=== PATIENT | male | born 1980 | race American Indian/Alaskan Native ===

== ENCOUNTER 2023-12-20 04:39 | Inpatient (IN) | payer SELFPAY ==
[2023-12-20] MEDS: Ondansetron 4 MG/2 ML SDV IVPUSH ONE (04:47)
[2023-12-20 04:59] LABS: BASOPHILS ABSOLUTE AUTO 0.08 K/uL (0.00-0.20); BASOPHILS PERCENT AUTO 0.6 % (0.0-1.0); EOSINOPHILS ABSOLUTE AUTO 0.01 K/uL (0.00-0.45); EOSINOPHILS PERCENT AUTO 0.1 % (0.0-6.0); HEMATOCRIT 42.1 % (42.0-52.0); IMMATURE GRAN ABSOLUTE AUTO 0.21 K/uL (0.00-0.05); IMMATURE GRAN PERCENT AUTO 1.4 % (0.0-0.4); LYMPHOCYTES ABSOLUTE AUTO 1.61 K/uL (1.00-4.80); LYMPHOCYTES PERCENT AUTO 11.1 % (24.0-44.0); MEAN CORPUSCULAR HEMOGLOBIN 27.8 pg (28.0-32.0); MEAN CORPUSCULAR HGB CONC 30.9 g/dL (32.0-36.0); MEAN CORPUSCULAR VOLUME 90.1 fL (83.0-99.0); MEAN PLATELET VOLUME 9.8 fL (9.4-12.4); MONOCYTES ABSOLUTE AUTO 0.94 K/uL (0.00-0.80); MONOCYTES PERCENT AUTO 6.5 % (0.0-8.0); NEUTROPHILS ABSOLUTE AUTO 11.66 K/uL (1.80-7.70); NEUTROPHILS PERCENT AUTO 80.3 % (41.0-71.0); PCO2 VENOUS 18 mmHG (41-51); PH,VENOUS < 6.82 (7.31-7.41); PLATELET COUNT,PLT 167 K/uL (150-400); PO2 VENOUS 60 mmHG; RED BLOOD CELL COUNT 4.67 M/uL (4.52-5.90); WHITE BLOOD CELL COUNT,WBC 14.51 K/uL (3.9-11.3)
[2023-12-20] MEDS ORDERED: Potassium Chloride 20 MEQ in Premix Bag 1 BAG IV ONE (05:13)
[2023-12-20] MEDS ORDERED: 50% Dextrose in Water 50 ML Syringe IVPUSH PRN (05:15)
[2023-12-20] MEDS ORDERED: Glucagon,Human Recombinant 1 MG Vial IM PRN (05:15)
[2023-12-20] MEDS: Sodium Bicarbonate 8.4% 50 MEQ/50 ML Syringe IVPUSH ONE ×2 (05:20→06:15)
[2023-12-20] MEDS ORDERED: [UNRECOGNIZED DRUG - OTHER] IV ONE (05:30)
[2023-12-20] MEDS ORDERED: POTASSIUM CHLORIDE IV ONE (05:30)
[2023-12-20] MEDS: Potassium Chloride 10 MEQ in Premix Bag 1 BAG IV ONE ×3 (05:32→06:12)
[2023-12-20 05:52] LABS: A/G RATIO 0.8 (0.9-1.6); ALANINE AMINOTRANSFERASE,ALT 132 IU/L (14-63); ALBUMIN 3.8 g/dL (3.4-5.0); ALKALINE PHOSPHATASE 187 U/L (46-116); BILIRUBIN TOTAL 0.5 mg/dL (0.2-1.0); BLOOD UREA NITROGEN,BUN 16 mg/dL (7.0-18.0); CALCIUM 8.6 mg/dL (8.5-10.1); CHLORIDE,CL 93 mmol/L (98-107); CREATININE 1.3 mg/dL (0.8-1.3); POTASSIUM,K 5.7 mmol/L (3.5-5.1); PROTEIN TOTAL,TP 8.5 g/dL (6.4-8.2); SODIUM,NA 129 mmol/L (136-148)
[2023-12-20 05:54] LABS: CARBON DIOXIDE,CO2 1.9 mmol/L (21.0-32.0)
[2023-12-20 05:55] LABS: ESTIMATED GFR 70 mL/min (>60); GLUCOSE RANDOM 663 mg/dL (74-106)
[2023-12-20] MEDS: Insulin Regular, Human 100 Units/ML 10 ML Vial IVPUSH ONE (06:01)
[2023-12-20] MEDS: Insulin Regular in 0.9 % NACL 100 ML IV SCH (06:03)
[2023-12-20 06:09] LABS: ASPARTATE AMNIOTRANSFERASE,AST 62 IU/L (15-37)
[2023-12-20] MEDS: Prochlorperazine 10 MG/2 ML SDV IM ONE (06:13)
[2023-12-20] MEDS: Prochlorperazine 10 MG/2 ML SDV IVPUSH ONE (06:16)
[2023-12-20] MEDS: Sodium Chloride 0.9% 1,000 ML IV STA (06:28)
[2023-12-20 06:52] LABS: POTASSIUM,K 5.3 mmol/L (3.5-5.1)
[2023-12-20] MEDS ORDERED: Sodium Bicarbonate 150 MEQ in Sodium Chloride 0.45% 1,000 ML IV SCH ×2 (07:00→08:30)
[2023-12-20 07:16] LABS: APPEARANCE,URINE CLEAR; BILIRUBIN,URINE NEGATIVE (NEGATIVE); COLOR,URINE YELLOW; GLUCOSE,URINE 500 mg/dL (NEGATIVE); KETONES,URINE >=80 mg/dL (NEGATIVE); LEUKOCYTE ESTERASE,URINE NEGATIVE (NEGATIVE); NITRITE,URINE NEGATIVE (NEGATIVE); OCCULT BLOOD,URINE SMALL (NEGATIVE); PROTEIN,URINE 30 mg/dL (NEGATIVE); UROBILINOGEN,URINE 0.2 EU/dL (<2.0)
[2023-12-20] MEDS: Iopamidol 755 MG/ML 500 ML Multipack Bottle IVPUSH ONE (07:16)
[2023-12-20 07:28] LABS: BACTERIA,URINE RARE (NEGATIVE); EPITHELIAL CELLS,URINE NOT SEEN (NONE-FEW); RBC,URINE 0-1 (0-2/HPF); WBC,URINE 0-1 (0-5/HPF)
[2023-12-20 07:48] LABS: BLOOD UREA NITROGEN,BUN 16 mg/dL (7.0-18.0); CALCIUM 7.7 mg/dL (8.5-10.1); CHLORIDE,CL 97 mmol/L (98-107); CREATININE 1.1 mg/dL (0.8-1.3); GLUCOSE RANDOM 495 mg/dL (74-106); PHOSPHORUS 5.1 mg/dL (2.6-4.7); POTASSIUM,K 4.7 mmol/L (3.5-5.1); SODIUM,NA 131 mmol/L (136-148)
[2023-12-20 07:50] LABS: ESTIMATED GFR 85 mL/min (>60)
[2023-12-20] MEDS: Sodium Chloride 0.9% 1,000 ML IV ONE ×2 (08:10)
[2023-12-20 08:11] LABS: PH,VENOUS 6.9 (7.31-7.41)
[2023-12-20 08:12] LABS: CARBON DIOXIDE,CO2 3.1 mmol/L (21.0-32.0)
[2023-12-20 08:30] LABS: POTASSIUM,K 4.7 mmol/L (3.5-5.1)
[2023-12-20 09:29] LABS: POTASSIUM,K 4.6 mmol/L (3.5-5.1)
[2023-12-20 10:29] LABS: BASE EXCESS VENOUS -25.7 (-2.0-3.0); PH,VENOUS 6.99 (7.31-7.41)
[2023-12-20 10:33] LABS: BLOOD UREA NITROGEN,BUN 14 mg/dL (7.0-18.0); CALCIUM 7.2 mg/dL (8.5-10.1); CHLORIDE,CL 102 mmol/L (98-107); GLUCOSE RANDOM 212 mg/dL (74-106); SODIUM,NA 135 mmol/L (136-148)
[2023-12-20 10:35] LABS: ESTIMATED GFR 96 mL/min (>60)
[2023-12-20] MEDS ORDERED: DEXTROSE IV SCH (11:30)
[2023-12-20] MEDS ORDERED: SODIUM BICARBONATE IV SCH (11:30)
[2023-12-20] MEDS ORDERED: NACL IV SCH (11:30)
[2023-12-20] MEDS ORDERED: Polyethylene Glycol 3350 Powder 17 GM Packet PO PRN (11:33)
[2023-12-20] MEDS ORDERED: Acetaminophen 325 MG Tab PO PRN (11:33)
[2023-12-20] MEDS ORDERED: Acetaminophen 650 MG Supp RECTAL PRN (11:33)
[2023-12-20] MEDS ORDERED: Albuterol/Ipratropium 3.0-0.5 MG/3 ML Neb Soln NEB PRN (11:33)
[2023-12-20] MEDS ORDERED: Thiamine 100 MG in Sodium Chloride 0.9% 100 ML IV SCH (11:45)
[2023-12-20] MEDS ORDERED: LORazepam 1 MG Tab PO PRN (11:45)
[2023-12-20] MEDS: Folic Acid 1 MG/0.2 ML UD Syringe IV SCH (12:06)
[2023-12-20] MEDS: Pantoprazole 40 MG in Sodium Chloride 0.9% 10 ML IVPUSH SCH (12:06)
[2023-12-20] MEDS: Thiamine 200 MG/2 ML MDV IVPUSH SCH (12:06)
[2023-12-20] MEDS ORDERED: Prochlorperazine 10 MG/2 ML SDV IVPUSH PRN (12:08)
[2023-12-20] MEDS: DEXTROSE IV SCH ×2 (12:17→18:28)
[2023-12-20] MEDS: SODIUM BICARBONATE IV SCH ×2 (12:17→18:28)
[2023-12-20] MEDS: NACL IV SCH ×2 (12:17→18:28)
[2023-12-20 12:44] LABS: CALCIUM 7.6 mg/dL (8.5-10.1); EST CRCL DRUG DOSING (CG) 78.46 mL/min; PHOSPHORUS 2.8 mg/dL (2.6-4.7); POTASSIUM,K 4.9 mmol/L (3.5-5.1)
[2023-12-20] MEDS: Ondansetron 4 MG/2 ML SDV IVPUSH PRN (13:15)
[2023-12-20 14:52] LABS: CALCIUM 7.8 mg/dL (8.5-10.1); CARBON DIOXIDE,CO2 4.2 mmol/L (21.0-32.0); CREATININE 1.1 mg/dL (0.8-1.3); EST CRCL DRUG DOSING (CG) 71.33 mL/min; MAGNESIUM 2.1 mg/dL (1.8-2.4); POTASSIUM,K 5.3 mmol/L (3.5-5.1)
[2023-12-20] MEDS: LORazepam 2 MG/ML SDV IVPUSH ONE (16:05)
[2023-12-20 16:07] LABS: LACTIC ACID 0.7 mmol/L (0.4-2.0)
[2023-12-20 16:53] LABS: CALCIUM 7.8 mg/dL (8.5-10.1); EST CRCL DRUG DOSING (CG) 78.46 mL/min; MAGNESIUM 2.1 mg/dL (1.8-2.4); POTASSIUM,K 5.7 mmol/L (3.5-5.1)
[2023-12-20 16:54] LABS: CARBON DIOXIDE,CO2 4.1 mmol/L (21.0-32.0)
[2023-12-20 17:15] LABS: A/G RATIO 0.9 (0.9-1.6); ALBUMIN 3.3 g/dL (3.4-5.0); BILIRUBIN DIRECT 0.1 mg/dL (0.0-0.5); BILIRUBIN INDIRECT 0.5; BILIRUBIN TOTAL 0.6 mg/dL (0.2-1.0); PROTEIN TOTAL,TP 6.8 g/dL (6.4-8.2)
[2023-12-20 18:31] LABS: CARBON DIOXIDE,CO2 5.5 mmol/L (21.0-32.0); CREATININE 1.1 mg/dL (0.8-1.3); EST CRCL DRUG DOSING (CG) 71.33 mL/min; MAGNESIUM 2.1 mg/dL (1.8-2.4); POTASSIUM,K 5.6 mmol/L (3.5-5.1)
[2023-12-20 20:27] LABS: CALCIUM 8.1 mg/dL (8.5-10.1); CARBON DIOXIDE,CO2 5.7 mmol/L (21.0-32.0); CREATININE 1.1 mg/dL (0.8-1.3); EST CRCL DRUG DOSING (CG) 71.33 mL/min; MAGNESIUM 1.9 mg/dL (1.8-2.4); POTASSIUM,K 4.4 mmol/L (3.5-5.1)
[2023-12-20] MEDS ORDERED: Cefepime 2 GM in Sodium Chloride 0.9% 50 ML IV SCH (22:00)
[2023-12-20 22:22] LABS: CALCIUM 8.1 mg/dL (8.5-10.1); EST CRCL DRUG DOSING (CG) 78.46 mL/min; MAGNESIUM 1.7 mg/dL (1.8-2.4); POTASSIUM,K 3.8 mmol/L (3.5-5.1)
[2023-12-20] MEDS: Cefepime 2 GM in Sodium Chloride 0.9% 50 ML IV SCH (22:49)
[2023-12-21] MEDS: Potassium Chloride 10 MEQ in Premix Bag 1 BAG IV SCH ×2 (01:19→13:20)
[2023-12-21 02:27] LABS: CARBON DIOXIDE,CO2 16.8 mmol/L (21.0-32.0); CREATININE 0.8 mg/dL (0.8-1.3); EST CRCL DRUG DOSING (CG) 98.08 mL/min; MAGNESIUM 1.7 mg/dL (1.8-2.4); POTASSIUM,K 3.7 mmol/L (3.5-5.1)
[2023-12-21] MEDS: Magnesium Sulfate/Water 2 GM in Premix Bag 1 BAG IV ONE (03:13)
[2023-12-21 06:47] LABS: EOSINOPHILS ABSOLUTE AUTO 0.01 K/uL (0.00-0.45); EOSINOPHILS PERCENT AUTO 0.2 % (0.0-6.0); HEMATOCRIT 28.7 % (42.0-52.0); HEMOGLOBIN 9.9 g/dL (14.0-18.0); IMMATURE GRAN ABSOLUTE AUTO 0.02 K/uL (0.00-0.05); IMMATURE GRAN PERCENT AUTO 0.4 % (0.0-0.4); LYMPHOCYTES ABSOLUTE AUTO 0.82 K/uL (1.00-4.80); LYMPHOCYTES PERCENT AUTO 14.5 % (24.0-44.0); MEAN CORPUSCULAR HGB CONC 34.5 g/dL (32.0-36.0); MEAN CORPUSCULAR VOLUME 81.1 fL (83.0-99.0); MEAN PLATELET VOLUME 9.8 fL (9.4-12.4); MONOCYTES ABSOLUTE AUTO 0.47 K/uL (0.00-0.80); MONOCYTES PERCENT AUTO 8.3 % (0.0-8.0); NEUTROPHILS ABSOLUTE AUTO 4.35 K/uL (1.80-7.70); NEUTROPHILS PERCENT AUTO 76.6 % (41.0-71.0); RED BLOOD CELL COUNT 3.54 M/uL (4.52-5.90); WHITE BLOOD CELL COUNT,WBC 5.67 K/uL (3.9-11.3)
[2023-12-21 06:53] LABS: CALCIUM 8.2 mg/dL (8.5-10.1); CREATININE 0.8 mg/dL (0.8-1.3); EST CRCL DRUG DOSING (CG) 99.38 mL/min; MAGNESIUM 2.5 mg/dL (1.8-2.4); POTASSIUM,K 3.5 mmol/L (3.5-5.1)
[2023-12-21 07:09] LABS: PLATELET COUNT,PLT 102 K/uL (150-400)
[2023-12-21] MEDS: Dextrose 5%-0.45% NaCl 1,000 ML IV SCH (07:35)
[2023-12-21] MEDS: Potassium Chloride 20 MEQ Tab.ER PO ONE ×2 (07:36→19:08)
[2023-12-21 10:19] LABS: CALCIUM 8.1 mg/dL (8.5-10.1); CARBON DIOXIDE,CO2 25.8 mmol/L (21.0-32.0); CREATININE 0.8 mg/dL (0.8-1.3); EST CRCL DRUG DOSING (CG) 99.38 mL/min; POTASSIUM,K 3.1 mmol/L (3.5-5.1)
[2023-12-21] MEDS ORDERED: Glucagon,Human Recombinant 1 MG Vial IM PRN (10:21)
[2023-12-21] MEDS ORDERED: 50% Dextrose in Water 50 ML Syringe IVPUSH PRN (10:21)
[2023-12-21] MEDS: Insulin Glargine,Hum.Rec.Anlog 100 UNIT/ML 3 ML Pen SUBCUT STA (10:28)
[2023-12-21] MEDS: Insulin Aspart 100 Units/ML 3 ML Pen SUBCUT SCH (11:20)
[2023-12-21] MEDS ORDERED: Potassium Chloride 20 MEQ in Premix Bag 1 BAG IV ONE (12:30)
[2023-12-21 14:25] LABS: CALCIUM 8.2 mg/dL (8.5-10.1); CARBON DIOXIDE,CO2 25.5 mmol/L (21.0-32.0); CREATININE 0.8 mg/dL (0.8-1.3); EST CRCL DRUG DOSING (CG) 99.38 mL/min; POTASSIUM,K 3.4 mmol/L (3.5-5.1)
[2023-12-21 18:37] LABS: CALCIUM 8.8 mg/dL (8.5-10.1); CARBON DIOXIDE,CO2 20.3 mmol/L (21.0-32.0); EST CRCL DRUG DOSING (CG) 79.5 mL/min; POTASSIUM,K 3.6 mmol/L (3.5-5.1)
[2023-12-21] MEDS: Insulin Glargine,Hum.Rec.Anlog 100 UNIT/ML 3 ML Pen SUBCUT SCH (22:33)
[2023-12-22 06:02] LABS: BASOPHILS ABSOLUTE AUTO 0.02 K/uL (0.00-0.20); BASOPHILS PERCENT AUTO 0.5 % (0.0-1.0); EOSINOPHILS ABSOLUTE AUTO 0.05 K/uL (0.00-0.45); EOSINOPHILS PERCENT AUTO 1.3 % (0.0-6.0); HEMATOCRIT 31.8 % (42.0-52.0); HEMOGLOBIN 10.6 g/dL (14.0-18.0); IMMATURE GRAN ABSOLUTE AUTO 0.01 K/uL (0.00-0.05); IMMATURE GRAN PERCENT AUTO 0.3 % (0.0-0.4); LYMPHOCYTES ABSOLUTE AUTO 1.25 K/uL (1.00-4.80); LYMPHOCYTES PERCENT AUTO 32.1 % (24.0-44.0); MEAN CORPUSCULAR HEMOGLOBIN 27.2 pg (28.0-32.0); MEAN CORPUSCULAR HGB CONC 33.3 g/dL (32.0-36.0); MEAN CORPUSCULAR VOLUME 81.7 fL (83.0-99.0); MEAN PLATELET VOLUME 9.6 fL (9.4-12.4); MONOCYTES ABSOLUTE AUTO 0.43 K/uL (0.00-0.80); MONOCYTES PERCENT AUTO 11.1 % (0.0-8.0); NEUTROPHILS ABSOLUTE AUTO 2.13 K/uL (1.80-7.70); NEUTROPHILS PERCENT AUTO 54.7 % (41.0-71.0); PLATELET COUNT,PLT 78 K/uL (150-400); RED BLOOD CELL COUNT 3.89 M/uL (4.52-5.90); WHITE BLOOD CELL COUNT,WBC 3.89 K/uL (3.9-11.3)
[2023-12-22 06:42] LABS: A/G RATIO 0.8 (0.9-1.6); ALBUMIN 2.8 g/dL (3.4-5.0); BILIRUBIN TOTAL 0.5 mg/dL (0.2-1.0); CALCIUM 8.6 mg/dL (8.5-10.1); CARBON DIOXIDE,CO2 22.8 mmol/L (21.0-32.0); CREATININE 0.6 mg/dL (0.8-1.3); EST CRCL DRUG DOSING (CG) 127.41 mL/min; PROTEIN TOTAL,TP 6.3 g/dL (6.4-8.2)
[2023-12-22 06:57] LABS: POTASSIUM,K 3.7 mmol/L (3.5-5.1)
[2023-12-22] MEDS: Insulin Glargine,Hum.Rec.Anlog 100 UNIT/ML 3 ML Pen SUBCUT SCH (07:44)
== END 2023-12-22 14:10 | disposition home or self-care (01) | DRG 639 ==
LOC: MW.ED 04:39 → MW.ICU 09:59
PROVIDERS: ADMIT Family Medicine; ATTEND Family Medicine
DX: E11.10 Type 2 diabetes mellitus with ketoacidosis without coma (principal); D72.829 Elevated white blood cell count, unspecified; F10.10 Alcohol abuse, uncomplicated; E87.8 Other disorders of electrolyte and fluid balance, not elsewhere classified; R74.8 Abnormal levels of other serum enzymes; D50.9 Iron deficiency anemia, unspecified; Z79.4 Long term (current) use of insulin; Z88.1 Allergy status to other antibiotic agents; Z91.148 Patient's other noncompliance with medication regimen for other reason; Z79.899 Other long term (current) drug therapy
CPT/HCPCS: 36415; 71045; 71045-26; 74177; 74177-26; 80048; 80053; 80076; 81001; 82009; 82330; 82803; 82947; 83605; 83690; 83735; 84100; 84132; 84478; 84484; 85025; 87040; 93005; 93010; 99291; A9270-GY; C9113; J0692; J0780; J1815; J1815-GY; J2060; J2405; J3411; J3475; J3480; J3490; J7030; J7042; Q9967

== ENCOUNTER 2024-03-07 06:05 | Inpatient (IN) | payer SELFPAY ==
[2024-03-07 06:17] LABS: BASOPHILS ABSOLUTE AUTO 0.07 K/uL (0.00-0.20); BASOPHILS PERCENT AUTO 0.5 % (0.0-1.0); EOSINOPHILS ABSOLUTE AUTO 0.02 K/uL (0.00-0.45); EOSINOPHILS PERCENT AUTO 0.1 % (0.0-6.0); HEMATOCRIT 43.6 % (42.0-52.0); HEMOGLOBIN 13.3 g/dL (14.0-18.0); IMMATURE GRAN ABSOLUTE AUTO 0.17 K/uL (0.00-0.05); IMMATURE GRAN PERCENT AUTO 1.1 % (0.0-0.4); LYMPHOCYTES ABSOLUTE AUTO 2.22 K/uL (1.00-4.80); LYMPHOCYTES PERCENT AUTO 14.5 % (24.0-44.0); MEAN CORPUSCULAR HEMOGLOBIN 24.9 pg (28.0-32.0); MEAN CORPUSCULAR HGB CONC 30.5 g/dL (32.0-36.0); MEAN CORPUSCULAR VOLUME 81.5 fL (83.0-99.0); MEAN PLATELET VOLUME 10.6 fL (9.4-12.4); MONOCYTES ABSOLUTE AUTO 0.63 K/uL (0.00-0.80); MONOCYTES PERCENT AUTO 4.1 % (0.0-8.0); NEUTROPHILS ABSOLUTE AUTO 12.24 K/uL (1.80-7.70); NEUTROPHILS PERCENT AUTO 79.7 % (41.0-71.0); PLATELET COUNT,PLT 189 K/uL (150-400); RED BLOOD CELL COUNT 5.35 M/uL (4.52-5.90); WHITE BLOOD CELL COUNT,WBC 15.35 K/uL (3.9-11.3)
[2024-03-07] MEDS: Sodium Chloride 0.9% 10 ML Syringe FLUSH PRN (06:18)
[2024-03-07] MEDS: Sodium Chloride 0.9% 1,000 ML IV STA (06:18)
[2024-03-07] MEDS: Sodium Chloride 0.9% 2.5 ML Syringe FLUSH PRN (06:18)
[2024-03-07] MEDS: Ondansetron 4 MG/2 ML SDV IVPUSH ONE (06:22)
[2024-03-07 06:35] LABS: A/G RATIO 0.8 (0.9-1.6); ALBUMIN 4.2 g/dL (3.4-5.0); BILIRUBIN TOTAL 0.7 mg/dL (0.2-1.0); CALCIUM 9.5 mg/dL (8.5-10.1); CARBON DIOXIDE,CO2 7.6 mmol/L (21.0-32.0); CREATININE 1.5 mg/dL (0.8-1.3); EST CRCL DRUG DOSING (CG) 53.44 mL/min; POTASSIUM,K 4.8 mmol/L (3.5-5.1); PROTEIN TOTAL,TP 9.4 g/dL (6.4-8.2)
[2024-03-07 06:40] LABS: BASE EXCESS VENOUS -23.5 (-2.0-3.0); PH,VENOUS 7.01 (7.31-7.41)
[2024-03-07] MEDS: Iopamidol 755 MG/ML 500 ML Multipack Bottle IVPUSH STA (06:59)
[2024-03-07] MEDS: Sodium Chloride 0.9% 1,000 ML IV ONE (07:10)
[2024-03-07] MEDS: Metoclopramide 10 MG/2 ML SDV IVPUSH ONE (07:11)
[2024-03-07] MEDS: diphenhydrAMINE 50 MG/ML SDV IVPUSH ONE (07:11)
[2024-03-07] MEDS: Folic Acid 1 MG/0.2 ML UD Syringe IV STA (07:12)
[2024-03-07] MEDS: Thiamine 200 MG/2 ML MDV IVPUSH ONE (07:13)
[2024-03-07] MEDS: Pantoprazole 40 MG in Sodium Chloride 0.9% 10 ML IVPUSH ONE (07:15)
[2024-03-07] MEDS: LORazepam 2 MG/ML SDV IVPUSH ONE (07:17)
[2024-03-07] MEDS ORDERED: Insulin Regular in 0.9 % NACL 100 ML IV SCH (07:45)
[2024-03-07] MEDS: Insulin Regular in 0.9 % NACL 100 ML IV SCH ×2 (08:05→11:12)
[2024-03-07 08:29] LABS: POTASSIUM,K 5.2 mmol/L (3.5-5.1)
[2024-03-07] MEDS ORDERED: Polyethylene Glycol 3350 Powder 17 GM Packet PO PRN (08:37)
[2024-03-07] MEDS ORDERED: Acetaminophen 650 MG Supp RECTAL PRN (08:37)
[2024-03-07] MEDS ORDERED: Melatonin 3 MG Tab PO PRN (08:37)
[2024-03-07] MEDS ORDERED: Sodium Chloride 0.9% 1,000 ML IV SCH ×2 (08:45)
[2024-03-07] MEDS ORDERED: Gabapentin 100 MG Cap PO SCH (08:45)
[2024-03-07] MEDS ORDERED: LORazepam 2 MG/ML SDV IVPUSH PRN (08:53)
[2024-03-07] MEDS ORDERED: Thiamine 100 MG in Sodium Chloride 0.9% 100 ML IV SCH (09:00)
[2024-03-07 09:05] LABS: CALCIUM 7.8 mg/dL (8.5-10.1); CARBON DIOXIDE,CO2 6.4 mmol/L (21.0-32.0); CREATININE 1.3 mg/dL (0.8-1.3); EST CRCL DRUG DOSING (CG) 61.66 mL/min; MAGNESIUM 1.9 mg/dL (1.8-2.4); PHOSPHORUS 6.1 mg/dL (2.6-4.7); POTASSIUM,K 5.2 mmol/L (3.5-5.1)
[2024-03-07 09:26] LABS: APPEARANCE,URINE CLEAR; BILIRUBIN,URINE NEGATIVE (NEGATIVE); COLOR,URINE YELLOW; GLUCOSE,URINE 500 mg/dL (NEGATIVE); KETONES,URINE >=80 mg/dL (NEGATIVE); LEUKOCYTE ESTERASE,URINE NEGATIVE (NEGATIVE); NITRITE,URINE NEGATIVE (NEGATIVE); OCCULT BLOOD,URINE TRACE-INTACT (NEGATIVE); PROTEIN,URINE TRACE mg/dL (NEGATIVE); UROBILINOGEN,URINE 0.2 EU/dL (<2.0)
[2024-03-07 09:37] LABS: BACTERIA,URINE NOT SEEN (NEGATIVE); EPITHELIAL CELLS,URINE NOT SEEN (NONE-FEW); WBC,URINE NONE SEEN (0-5/HPF)
[2024-03-07] MEDS ORDERED: Dextrose 5%-0.45% NaCl 1,000 ML IV SCH (10:15)
[2024-03-07] MEDS: Dextrose 5%-0.9% NaCl 1,000 ML IV SCH (11:12)
[2024-03-07] MEDS: Heparin Sodium 5,000 Units/ML Vial SUBCUT SCH (11:45)
[2024-03-07] MEDS: Acetaminophen 325 MG Tab PO PRN (11:45)
[2024-03-07] MEDS: Folic Acid 1 MG/0.2 ML UD Syringe IV SCH (11:45)
[2024-03-07] MEDS: Thiamine 200 MG/2 ML MDV IV SCH (11:47)
[2024-03-07 12:58] LABS: CALCIUM 8.5 mg/dL (8.5-10.1); CARBON DIOXIDE,CO2 8.9 mmol/L (21.0-32.0); CREATININE 1.2 mg/dL (0.8-1.3); EST CRCL DRUG DOSING (CG) 67.36 mL/min; PHOSPHORUS 2.9 mg/dL (2.6-4.7); POTASSIUM,K 4.9 mmol/L (3.5-5.1)
[2024-03-07 16:54] LABS: CALCIUM 8.2 mg/dL (8.5-10.1); CARBON DIOXIDE,CO2 18.6 mmol/L (21.0-32.0); CREATININE 1.1 mg/dL (0.8-1.3); EST CRCL DRUG DOSING (CG) 73.48 mL/min; MAGNESIUM 1.7 mg/dL (1.8-2.4); PHOSPHORUS 1.8 mg/dL (2.6-4.7); POTASSIUM,K 4.3 mmol/L (3.5-5.1)
[2024-03-07] MEDS: Magnesium Sulfate (4.06 MEQ/ML) 5 GM/10 ML SDV IV ONE (17:48)
[2024-03-07] MEDS: Pantoprazole 40 MG in Sodium Chloride 0.9% 10 ML IVPUSH SCH (18:03)
[2024-03-07] MEDS: Phosphorus #1 250 MG Tab PO SCH (18:06)
[2024-03-07] MEDS: Magnesium Sulfate/Water 50 ML IV ONE (18:06)
[2024-03-07 20:22] LABS: CALCIUM 8.1 mg/dL (8.5-10.1); CARBON DIOXIDE,CO2 17.9 mmol/L (21.0-32.0); CREATININE 0.9 mg/dL (0.8-1.3); EST CRCL DRUG DOSING (CG) 89.81 mL/min; MAGNESIUM 2.2 mg/dL (1.8-2.4); PHOSPHORUS 1.9 mg/dL (2.6-4.7)
[2024-03-08 00:46] LABS: CALCIUM 7.9 mg/dL (8.5-10.1); CARBON DIOXIDE,CO2 19.6 mmol/L (21.0-32.0); CREATININE 0.8 mg/dL (0.8-1.3); EST CRCL DRUG DOSING (CG) 101.04 mL/min; POTASSIUM,K 3.4 mmol/L (3.5-5.1)
[2024-03-08] MEDS: Potassium Chloride 20 MEQ Tab.ER PO SCH (03:28)
[2024-03-08 04:47] LABS: BASOPHILS ABSOLUTE AUTO 0.01 K/uL (0.00-0.20); BASOPHILS PERCENT AUTO 0.1 % (0.0-1.0); EOSINOPHILS ABSOLUTE AUTO 0.08 K/uL (0.00-0.45); EOSINOPHILS PERCENT AUTO 1.1 % (0.0-6.0); HEMOGLOBIN 9.6 g/dL (14.0-18.0); IMMATURE GRAN ABSOLUTE AUTO 0.02 K/uL (0.00-0.05); IMMATURE GRAN PERCENT AUTO 0.3 % (0.0-0.4); LYMPHOCYTES ABSOLUTE AUTO 1.77 K/uL (1.00-4.80); LYMPHOCYTES PERCENT AUTO 25.3 % (24.0-44.0); MEAN CORPUSCULAR HEMOGLOBIN 24.7 pg (28.0-32.0); MEAN CORPUSCULAR VOLUME 77.1 fL (83.0-99.0); MEAN PLATELET VOLUME 9.8 fL (9.4-12.4); MONOCYTES ABSOLUTE AUTO 0.56 K/uL (0.00-0.80); NEUTROPHILS ABSOLUTE AUTO 4.55 K/uL (1.80-7.70); NEUTROPHILS PERCENT AUTO 65.2 % (41.0-71.0); PLATELET COUNT,PLT 130 K/uL (150-400); RED BLOOD CELL COUNT 3.89 M/uL (4.52-5.90); WHITE BLOOD CELL COUNT,WBC 6.99 K/uL (3.9-11.3)
[2024-03-08 05:01] LABS: CARBON DIOXIDE,CO2 21.7 mmol/L (21.0-32.0); CREATININE 0.8 mg/dL (0.8-1.3); EST CRCL DRUG DOSING (CG) 101.04 mL/min
[2024-03-08] MEDS: Insulin Glargine,Hum.Rec.Anlog 100 UNIT/ML 3 ML Pen SUBCUT SCH ×2 (06:14→20:52)
[2024-03-08] MEDS ORDERED: 50% Dextrose in Water 50 ML Syringe IVPUSH PRN (08:48)
[2024-03-08] MEDS ORDERED: Glucagon,Human Recombinant 1 MG Vial IM PRN (08:48)
[2024-03-08 09:13] LABS: CALCIUM 8.2 mg/dL (8.5-10.1); CARBON DIOXIDE,CO2 19.3 mmol/L (21.0-32.0); CREATININE 0.7 mg/dL (0.8-1.3); EST CRCL DRUG DOSING (CG) 121.25 mL/min; POTASSIUM,K 3.4 mmol/L (3.5-5.1)
[2024-03-08] MEDS: Potassium Chloride 20 MEQ Tab.ER PO ONE ×2 (10:21→16:15)
[2024-03-08] MEDS: Insulin Aspart 100 Units/ML 3 ML Pen SUBCUT SCH (11:08)
[2024-03-08] MEDS: Ondansetron 4 MG/2 ML SDV IVPUSH PRN (12:24)
[2024-03-08 13:10] LABS: CALCIUM 8.4 mg/dL (8.5-10.1); CARBON DIOXIDE,CO2 19.8 mmol/L (21.0-32.0); CREATININE 0.8 mg/dL (0.8-1.3); EST CRCL DRUG DOSING (CG) 106.09 mL/min; POTASSIUM,K 3.8 mmol/L (3.5-5.1)
[2024-03-08 16:59] LABS: CALCIUM 9.1 mg/dL (8.5-10.1); CARBON DIOXIDE,CO2 15.8 mmol/L (21.0-32.0); CREATININE 0.8 mg/dL (0.8-1.3); EST CRCL DRUG DOSING (CG) 106.09 mL/min; MAGNESIUM 1.5 mg/dL (1.8-2.4); POTASSIUM,K 3.9 mmol/L (3.5-5.1)
[2024-03-08] MEDS: Magnesium Sulfate/Water 2 GM in Premix Bag 1 BAG IV ONE (17:51)
[2024-03-08] MEDS: Insulin Regular, Human 100 Units/ML 10 ML Vial IVPUSH ONE ×2 (17:51→22:27)
[2024-03-08 18:58] LABS: CARBON DIOXIDE,CO2 18.4 mmol/L (21.0-32.0); EST CRCL DRUG DOSING (CG) 84.88 mL/min; MAGNESIUM 1.7 mg/dL (1.8-2.4); POTASSIUM,K 3.9 mmol/L (3.5-5.1)
[2024-03-08] MEDS: Sodium Chloride 0.9% 1,000 ML IV SCH (19:43)
[2024-03-08 21:04] LABS: CALCIUM 8.7 mg/dL (8.5-10.1); CARBON DIOXIDE,CO2 16.5 mmol/L (21.0-32.0); CREATININE 0.8 mg/dL (0.8-1.3); EST CRCL DRUG DOSING (CG) 106.09 mL/min; POTASSIUM,K 4.1 mmol/L (3.5-5.1)
[2024-03-08 22:54] LABS: CALCIUM 8.5 mg/dL (8.5-10.1); CARBON DIOXIDE,CO2 19.8 mmol/L (21.0-32.0); CREATININE 0.8 mg/dL (0.8-1.3); EST CRCL DRUG DOSING (CG) 106.09 mL/min; POTASSIUM,K 4.3 mmol/L (3.5-5.1)
[2024-03-09 01:07] LABS: CALCIUM 8.3 mg/dL (8.5-10.1); CARBON DIOXIDE,CO2 21.9 mmol/L (21.0-32.0); CREATININE 0.8 mg/dL (0.8-1.3); EST CRCL DRUG DOSING (CG) 106.09 mL/min; POTASSIUM,K 4.1 mmol/L (3.5-5.1)
[2024-03-09 02:54] LABS: CALCIUM 8.1 mg/dL (8.5-10.1); CARBON DIOXIDE,CO2 24.3 mmol/L (21.0-32.0); CREATININE 0.7 mg/dL (0.8-1.3); EST CRCL DRUG DOSING (CG) 121.25 mL/min; POTASSIUM,K 3.8 mmol/L (3.5-5.1)
[2024-03-09 05:31] LABS: BASOPHILS ABSOLUTE AUTO 0.02 K/uL (0.00-0.20); BASOPHILS PERCENT AUTO 0.5 % (0.0-1.0); EOSINOPHILS ABSOLUTE AUTO 0.14 K/uL (0.00-0.45); EOSINOPHILS PERCENT AUTO 3.2 % (0.0-6.0); HEMATOCRIT 32.6 % (42.0-52.0); HEMOGLOBIN 10.5 g/dL (14.0-18.0); IMMATURE GRAN ABSOLUTE AUTO 0.02 K/uL (0.00-0.05); IMMATURE GRAN PERCENT AUTO 0.5 % (0.0-0.4); LYMPHOCYTES ABSOLUTE AUTO 1.81 K/uL (1.00-4.80); LYMPHOCYTES PERCENT AUTO 41.3 % (24.0-44.0); MEAN CORPUSCULAR HEMOGLOBIN 24.6 pg (28.0-32.0); MEAN CORPUSCULAR HGB CONC 32.2 g/dL (32.0-36.0); MEAN CORPUSCULAR VOLUME 76.5 fL (83.0-99.0); MEAN PLATELET VOLUME 10.2 fL (9.4-12.4); MONOCYTES ABSOLUTE AUTO 0.35 K/uL (0.00-0.80); NEUTROPHILS ABSOLUTE AUTO 2.04 K/uL (1.80-7.70); NEUTROPHILS PERCENT AUTO 46.5 % (41.0-71.0); PLATELET COUNT,PLT 141 K/uL (150-400); RED BLOOD CELL COUNT 4.26 M/uL (4.52-5.90); WHITE BLOOD CELL COUNT,WBC 4.38 K/uL (3.9-11.3)
[2024-03-09 06:04] LABS: A/G RATIO 0.7 (0.9-1.6); ALBUMIN 2.9 g/dL (3.4-5.0); BILIRUBIN TOTAL 0.5 mg/dL (0.2-1.0); CALCIUM 8.3 mg/dL (8.5-10.1); CARBON DIOXIDE,CO2 22.8 mmol/L (21.0-32.0); CREATININE 0.7 mg/dL (0.8-1.3); EST CRCL DRUG DOSING (CG) 121.25 mL/min; MAGNESIUM 1.7 mg/dL (1.8-2.4); POTASSIUM,K 3.6 mmol/L (3.5-5.1); PROTEIN TOTAL,TP 6.8 g/dL (6.4-8.2)
[2024-03-09] MEDS: Insulin Glargine,Hum.Rec.Anlog 100 UNIT/ML 3 ML Pen SUBCUT SCH (06:39)
[2024-03-09 06:52] LABS: CALCIUM 8.2 mg/dL (8.5-10.1); CARBON DIOXIDE,CO2 25.5 mmol/L (21.0-32.0); CREATININE 0.7 mg/dL (0.8-1.3); EST CRCL DRUG DOSING (CG) 118.36 mL/min; POTASSIUM,K 3.4 mmol/L (3.5-5.1)
[2024-03-09 09:19] LABS: CALCIUM 8.6 mg/dL (8.5-10.1); CARBON DIOXIDE,CO2 24.8 mmol/L (21.0-32.0); CREATININE 0.7 mg/dL (0.8-1.3); EST CRCL DRUG DOSING (CG) 118.36 mL/min; POTASSIUM,K 3.4 mmol/L (3.5-5.1)
[2024-03-09] MEDS: Potassium Chloride 20 MEQ Tab.ER PO ONE (10:54)
== END 2024-03-09 11:56 | disposition home or self-care (01) | DRG 638 ==
LOC: MW.ED 06:05 → MW.ICU 08:37 → MW.MS 03-08 16:00
PROVIDERS: ADMIT Family Medicine; ATTEND Family Medicine
DX: E11.10 Type 2 diabetes mellitus with ketoacidosis without coma (principal); N17.9 Acute kidney failure, unspecified; F10.10 Alcohol abuse, uncomplicated; E87.5 Hyperkalemia; Z88.0 Allergy status to penicillin; Z88.8 Allergy status to other drugs, medicaments and biological substances; Z79.4 Long term (current) use of insulin; Z79.899 Other long term (current) drug therapy; Z91.199 Patient's noncompliance with other medical treatment and regimen due to unspecified reason
CPT/HCPCS: 36415; 74177; 74177-26; 80048; 80053; 81001; 82803; 82947; 83690; 83735; 84100; 84132; 85025; 96361; 96374; 96375; 99222; 99232; 99239; 99285-25; 99291; A9270-GY; C9113; J1200; J1644; J1815; J1815-GY; J2060; J2405; J2765; J3411; J3475; J3490; J7030; J7042; Q9967

== ENCOUNTER 2024-04-08 03:11 | Inpatient (IN) | payer SELFPAY ==
[2024-04-08] MEDS: Ondansetron 4 MG/2 ML SDV IVPUSH ONE (03:20)
[2024-04-08] MEDS: Sodium Chloride 0.9% 1,000 ML IV ONE ×3 (03:21→05:13)
[2024-04-08] MEDS: Ondansetron 4 MG/2 ML SDV ONE (03:29)
[2024-04-08] MEDS: Metoclopramide 10 MG/2 ML SDV IVPUSH ONE (03:29)
[2024-04-08 03:30] LABS: BASE EXCESS VENOUS -21.2 (-2.0-3.0); BASOPHILS ABSOLUTE AUTO 0.06 K/uL (0.00-0.20); BASOPHILS PERCENT AUTO 0.6 % (0.0-1.0); EOSINOPHILS ABSOLUTE AUTO 0.01 K/uL (0.00-0.45); EOSINOPHILS PERCENT AUTO 0.1 % (0.0-6.0); HEMATOCRIT 41.9 % (42.0-52.0); HEMOGLOBIN 12.8 g/dL (14.0-18.0); IMMATURE GRAN ABSOLUTE AUTO 0.08 K/uL (0.00-0.05); IMMATURE GRAN PERCENT AUTO 0.8 % (0.0-0.4); LYMPHOCYTES ABSOLUTE AUTO 3.21 K/uL (1.00-4.80); LYMPHOCYTES PERCENT AUTO 30.5 % (24.0-44.0); MEAN CORPUSCULAR HGB CONC 30.5 g/dL (32.0-36.0); MEAN CORPUSCULAR VOLUME 78.6 fL (83.0-99.0); MEAN PLATELET VOLUME 10.1 fL (9.4-12.4); MONOCYTES ABSOLUTE AUTO 0.48 K/uL (0.00-0.80); MONOCYTES PERCENT AUTO 4.6 % (0.0-8.0); NEUTROPHILS ABSOLUTE AUTO 6.67 K/uL (1.80-7.70); NEUTROPHILS PERCENT AUTO 63.4 % (41.0-71.0); PH,VENOUS 7.06 (7.31-7.41); PLATELET COUNT,PLT 228 K/uL (150-400); RED BLOOD CELL COUNT 5.33 M/uL (4.52-5.90); WHITE BLOOD CELL COUNT,WBC 10.51 K/uL (3.9-11.3)
[2024-04-08] MEDS: Sodium Chloride 0.9% 2.5 ML Syringe FLUSH PRN (03:36)
[2024-04-08] MEDS: Sodium Chloride 0.9% 10 ML Syringe FLUSH PRN (03:36)
[2024-04-08 03:37] LABS: INR 1.02 (0.86-1.11)
[2024-04-08 03:46] LABS: ALANINE AMINOTRANSFERASE,ALT 29 IU/L (14-63); ALBUMIN 4.5 g/dL (3.4-5.0); ALKALINE PHOSPHATASE 141 U/L (46-116); ASPARTATE AMNIOTRANSFERASE,AST 20 IU/L (15-37); BILIRUBIN TOTAL 0.7 mg/dL (0.2-1.0); BLOOD UREA NITROGEN,BUN 14 mg/dL (7.0-18.0); CALCIUM 10.4 mg/dL (8.5-10.1); CARBON DIOXIDE,CO2 10.2 mmol/L (21.0-32.0); CHLORIDE,CL 92 mmol/L (98-107); CREATININE 1.6 mg/dL (0.8-1.3); EST CRCL DRUG DOSING (CG) 48.42 mL/min; ESTIMATED GFR 54 mL/min (>60); ETHANOL BLOOD MEDICAL <3 mg/dL; GLUCOSE RANDOM 413 mg/dL (74-106); LIPASE 18 U/L (16-77); MAGNESIUM 2.1 mg/dL (1.8-2.4); POTASSIUM,K 4.3 mmol/L (3.5-5.1); PROTEIN TOTAL,TP 9.1 g/dL (6.4-8.2); SODIUM,NA 137 mmol/L (136-148)
[2024-04-08] MEDS: Insulin Regular in 0.9 % NACL 100 ML IV SCH ×2 (04:03→04:20)
[2024-04-08 04:12] LABS: LACTIC ACID 3.7 mmol/L (0.4-2.0)
[2024-04-08 04:13] LABS: CORONAVIRUS COVID-19 NAA NEGATIVE (NEGATIVE); INFLUENZA A NAA NEGATIVE (NEGATIVE); INFLUENZA B NAA NEGATIVE (NEGATIVE); RESPIRATORY SYNCYTIAL VIR NAA NEGATIVE (NEGATIVE)
[2024-04-08 05:00] LABS: BILIRUBIN,URINE SMALL (NEGATIVE); COLOR,URINE YELLOW; GLUCOSE,URINE 500 mg/dL (NEGATIVE); KETONES,URINE >=80 mg/dL (NEGATIVE); LEUKOCYTE ESTERASE,URINE NEGATIVE (NEGATIVE); NITRITE,URINE NEGATIVE (NEGATIVE); OCCULT BLOOD,URINE TRACE-INTACT (NEGATIVE); PROTEIN,URINE 30 mg/dL (NEGATIVE); UROBILINOGEN,URINE 0.2 EU/dL (<2.0)
[2024-04-08 05:01] LABS: POTASSIUM,K 4.2 mmol/L (3.5-5.1)
[2024-04-08 05:01] LABS: APPEARANCE,URINE HAZY
[2024-04-08 05:04] LABS: BACTERIA,URINE RARE (NEGATIVE); EPITHELIAL CELLS,URINE NOT SEEN (NONE-FEW); WBC,URINE 0-1 (0-5/HPF)
[2024-04-08 05:05] LABS: MUCUS,URINE LIGHT (NONE-MOD)
[2024-04-08 05:09] LABS: AMPHETAMINES SCREEN, URINE NEGATIVE (CUTOFF=500); BARBITURATE SCREEN,URINE NEGATIVE (CUTOFF=200); BENZODIAZEPINES SCREEN,URINE NEGATIVE (CUTOFF=150); BUPRENORPHINE SCREEN,URINE NEGATIVE (CUTOFF=10); METHADONE SCREEN, URINE NEGATIVE (CUTOFF=200); METHAMPHETAMINES SCREEN, URINE NEGATIVE (CUTOFF=500); OXYCODONE SCREEN,URINE NEGATIVE (CUT0FF=100); PCP SCREEN,URINE NEGATIVE (CUTOFF=25); THC SCREEN,URINE 20 NG/ML NEGATIVE (CUTOFF=50)
[2024-04-08] MEDS ORDERED: Melatonin 3 MG Tab PO PRN (05:31)
[2024-04-08] MEDS ORDERED: Polyethylene Glycol 3350 Powder 17 GM Packet PO PRN (05:31)
[2024-04-08] MEDS ORDERED: Acetaminophen 325 MG Tab PO PRN (05:31)
[2024-04-08] MEDS ORDERED: Acetaminophen 650 MG Supp RECTAL PRN (05:31)
[2024-04-08] MEDS ORDERED: Ondansetron 4 MG/2 ML SDV IVPUSH PRN ×2 (05:31→09:20)
[2024-04-08] MEDS ORDERED: Metoclopramide 10 MG/2 ML SDV IVPUSH PRN ×2 (05:37→09:20)
[2024-04-08 06:12] LABS: CALCIUM 9.2 mg/dL (8.5-10.1); CARBON DIOXIDE,CO2 7.4 mmol/L (21.0-32.0); CREATININE 1.2 mg/dL (0.8-1.3); EST CRCL DRUG DOSING (CG) 64.55 mL/min; MAGNESIUM 2.1 mg/dL (1.8-2.4); PHOSPHORUS 4.9 mg/dL (2.6-4.7)
[2024-04-08] MEDS: Dextrose 5%-Lactated Ringers 1,000 ML IV SCH ×2 (06:17→20:13)
[2024-04-08] MEDS: Pantoprazole 40 MG in Sodium Chloride 0.9% 10 ML IVPUSH SCH (06:19)
[2024-04-08] MEDS: Enoxaparin 40 MG/0.4 ML Syringe SUBCUT SCH (06:22)
[2024-04-08] MEDS: Folic Acid 1 MG/0.2 ML UD Syringe IV SCH (06:27)
[2024-04-08] MEDS: Thiamine 100 MG in Sodium Chloride 0.9% 100 ML IV SCH (06:44)
[2024-04-08] MEDS: Sodium Bicarbonate 150 MEQ in Dextrose 5% in Water 1,000 ML IV ONE (08:23)
[2024-04-08 09:06] LABS: CALCIUM 8.7 mg/dL (8.5-10.1); CARBON DIOXIDE,CO2 6.1 mmol/L (21.0-32.0); CREATININE 1.1 mg/dL (0.8-1.3); EST CRCL DRUG DOSING (CG) 69.81 mL/min; MAGNESIUM 1.8 mg/dL (1.8-2.4); PHOSPHORUS 3.3 mg/dL (2.6-4.7); POTASSIUM,K 4.6 mmol/L (3.5-5.1)
[2024-04-08 13:18] LABS: CALCIUM 8.9 mg/dL (8.5-10.1); CARBON DIOXIDE,CO2 18.6 mmol/L (21.0-32.0); CREATININE 1.1 mg/dL (0.8-1.3); EST CRCL DRUG DOSING (CG) 69.81 mL/min; MAGNESIUM 1.6 mg/dL (1.8-2.4); POTASSIUM,K 3.9 mmol/L (3.5-5.1)
[2024-04-08] MEDS: Magnesium Sulfate/Water 2 GM in Premix Bag 1 BAG IV ONE (13:53)
[2024-04-08] MEDS: Dextrose 5%-Lact Ringers w/KCl 1,000 ML IV SCH (13:53)
[2024-04-08] MEDS: 50% Dextrose in Water 50 ML Syringe IVPUSH ONE (15:05)
[2024-04-08 16:48] LABS: CALCIUM 8.6 mg/dL (8.5-10.1); CARBON DIOXIDE,CO2 18.7 mmol/L (21.0-32.0); CREATININE 0.9 mg/dL (0.8-1.3); EST CRCL DRUG DOSING (CG) 85.32 mL/min; MAGNESIUM 2.2 mg/dL (1.8-2.4); POTASSIUM,K 3.6 mmol/L (3.5-5.1)
[2024-04-08] MEDS: 50% Dextrose in Water 50 ML Syringe ONE (17:05)
[2024-04-08] MEDS ORDERED: Potassium Chloride 20 MEQ in Premix Bag 1 BAG IV SCH (18:15)
[2024-04-08] MEDS: Potassium Chloride 10 MEQ in Premix Bag 1 BAG IV SCH (19:22)
[2024-04-08] MEDS: Gabapentin 300 MG Cap PO SCH (21:21)
[2024-04-08 21:28] LABS: CALCIUM 8.4 mg/dL (8.5-10.1); CARBON DIOXIDE,CO2 17.9 mmol/L (21.0-32.0); CREATININE 0.8 mg/dL (0.8-1.3); EST CRCL DRUG DOSING (CG) 95.99 mL/min; MAGNESIUM 2.1 mg/dL (1.8-2.4); POTASSIUM,K 4.4 mmol/L (3.5-5.1)
[2024-04-08] MEDS: Insulin Glargine,Hum.Rec.Anlog 100 UNIT/ML 3 ML Pen SUBCUT SCH (21:30)
[2024-04-09 00:52] LABS: CALCIUM 8.5 mg/dL (8.5-10.1); CARBON DIOXIDE,CO2 23.8 mmol/L (21.0-32.0); CREATININE 0.8 mg/dL (0.8-1.3); EST CRCL DRUG DOSING (CG) 95.99 mL/min; POTASSIUM,K 3.6 mmol/L (3.5-5.1)
[2024-04-09 04:48] LABS: HEMATOCRIT 33.1 % (42.0-52.0); HEMOGLOBIN 10.6 g/dL (14.0-18.0); MEAN CORPUSCULAR HEMOGLOBIN 24.2 pg (28.0-32.0); MEAN CORPUSCULAR VOLUME 75.6 fL (83.0-99.0); MEAN PLATELET VOLUME 9.3 fL (9.4-12.4); PLATELET COUNT,PLT 148 K/uL (150-400); RED BLOOD CELL COUNT 4.38 M/uL (4.52-5.90); WHITE BLOOD CELL COUNT,WBC 6.04 K/uL (3.9-11.3)
[2024-04-09 05:00] LABS: CALCIUM 8.7 mg/dL (8.5-10.1); CARBON DIOXIDE,CO2 25.4 mmol/L (21.0-32.0); CREATININE 0.7 mg/dL (0.8-1.3); EST CRCL DRUG DOSING (CG) 118.36 mL/min; POTASSIUM,K 3.4 mmol/L (3.5-5.1)
[2024-04-09] MEDS ORDERED: 50% Dextrose in Water 50 ML Syringe IVPUSH PRN (05:12)
[2024-04-09] MEDS ORDERED: Glucagon,Human Recombinant 1 MG Vial IM PRN (05:12)
[2024-04-09] MEDS: Insulin Glargine,Hum.Rec.Anlog 100 UNIT/ML 3 ML Pen SUBCUT SCH (05:28)
[2024-04-09] MEDS: Potassium Chloride 20 MEQ Tab.ER PO ONE (07:45)
[2024-04-09] MEDS: Insulin Aspart 100 Units/ML 3 ML Pen SUBCUT SCH (07:45)
[2024-04-09] MEDS: Folic Acid 1 MG/0.2 ML UD Syringe IV SCH (08:15)
[2024-04-09] MEDS: Thiamine 200 MG/2 ML MDV IVPUSH SCH (08:15)
[2024-04-09 08:57] LABS: CALCIUM 8.6 mg/dL (8.5-10.1); CARBON DIOXIDE,CO2 22.5 mmol/L (21.0-32.0); CREATININE 0.7 mg/dL (0.8-1.3); EST CRCL DRUG DOSING (CG) 118.36 mL/min; POTASSIUM,K 3.4 mmol/L (3.5-5.1)
[2024-04-09] MEDS ORDERED: Insulin Glargine,Hum.Rec.Anlog 100 UNIT/ML 3 ML Pen SUBCUT SCH (09:00)
== END 2024-04-09 10:45 | disposition home or self-care (01) | DRG 638 ==
LOC: MW.ED 03:11 → MW.ICU 04:31
PROVIDERS: ADMIT Family Medicine; ATTEND Family Medicine
DX: E11.10 Type 2 diabetes mellitus with ketoacidosis without coma (principal); N17.9 Acute kidney failure, unspecified; Z88.0 Allergy status to penicillin; Z88.1 Allergy status to other antibiotic agents; Z79.4 Long term (current) use of insulin; Z79.899 Other long term (current) drug therapy; Z91.199 Patient's noncompliance with other medical treatment and regimen due to unspecified reason
CPT/HCPCS: 0241U; 36415; 71045; 71045-26; 80048; 80053; 80305-QW; 80307; 81001; 82803; 82947; 83605; 83690; 83735; 84100; 84132; 84484; 85025; 85027; 85610; 93005; 93010; 99291; A9270-GY; J1650; J1815; J1815-GY; J2405; J2470; J2765; J3411; J3475; J3480; J3490; J7030; J7060; J7121

== ENCOUNTER 2024-04-25 15:59 | Inpatient (IN) | payer MEDICAID ==
[2024-04-25] MEDS: Sodium Chloride 0.9% 1,000 ML IV ONE ×3 (16:11→19:15)
[2024-04-25] MEDS: LORazepam 2 MG/ML SDV IVPUSH ONE ×2 (16:11→17:42)
[2024-04-25] MEDS: Ondansetron 4 MG/2 ML SDV IVPUSH ONE ×2 (16:11→18:59)
[2024-04-25 16:13] LABS: BASE EXCESS VENOUS -6.6 (-2.0-3.0); BASOPHILS ABSOLUTE AUTO 0.03 K/uL (0.00-0.20); BASOPHILS PERCENT AUTO 0.2 % (0.0-1.0); HEMATOCRIT 36.5 % (42.0-52.0); HEMOGLOBIN 11.5 g/dL (14.0-18.0); IMMATURE GRAN ABSOLUTE AUTO 0.11 K/uL (0.00-0.05); IMMATURE GRAN PERCENT AUTO 0.7 % (0.0-0.4); LYMPHOCYTES ABSOLUTE AUTO 0.68 K/uL (1.00-4.80); LYMPHOCYTES PERCENT AUTO 4.6 % (24.0-44.0); MEAN CORPUSCULAR HEMOGLOBIN 24.1 pg (28.0-32.0); MEAN CORPUSCULAR HGB CONC 31.5 g/dL (32.0-36.0); MEAN CORPUSCULAR VOLUME 76.5 fL (83.0-99.0); MEAN PLATELET VOLUME 9.7 fL (9.4-12.4); MONOCYTES ABSOLUTE AUTO 1.12 K/uL (0.00-0.80); MONOCYTES PERCENT AUTO 7.5 % (0.0-8.0); NEUTROPHILS ABSOLUTE AUTO 12.93 K/uL (1.80-7.70); PH,VENOUS 7.34 (7.31-7.41); PLATELET COUNT,PLT 165 K/uL (150-400); RED BLOOD CELL COUNT 4.77 M/uL (4.52-5.90); WHITE BLOOD CELL COUNT,WBC 14.87 K/uL (3.9-11.3)
[2024-04-25 16:41] LABS: A/G RATIO 1.1 (0.9-1.6); BILIRUBIN TOTAL 1.5 mg/dL (0.2-1.0); CALCIUM 8.1 mg/dL (8.5-10.1); CARBON DIOXIDE,CO2 17.6 mmol/L (21.0-32.0); CREATININE 1.4 mg/dL (0.8-1.3); EST CRCL DRUG DOSING (CG) 53.89 mL/min; POTASSIUM,K 3.8 mmol/L (3.5-5.1); PROTEIN TOTAL,TP 7.8 g/dL (6.4-8.2)
[2024-04-25 16:42] LABS: APPEARANCE,URINE CLEAR; BILIRUBIN,URINE NEGATIVE (NEGATIVE); COLOR,URINE YELLOW; GLUCOSE,URINE 500 mg/dL (NEGATIVE); KETONES,URINE >=80 mg/dL (NEGATIVE); LEUKOCYTE ESTERASE,URINE NEGATIVE (NEGATIVE); NITRITE,URINE NEGATIVE (NEGATIVE); OCCULT BLOOD,URINE NEGATIVE (NEGATIVE); PROTEIN,URINE NEGATIVE (NEGATIVE); UROBILINOGEN,URINE 0.2 EU/dL (<2.0)
[2024-04-25] MEDS ORDERED: Glucagon,Human Recombinant 1 MG Vial IM PRN ×2 (16:49→22:40)
[2024-04-25] MEDS ORDERED: 50% Dextrose in Water 50 ML Syringe IVPUSH PRN ×2 (16:49→22:40)
[2024-04-25 17:00] LABS: RBC,URINE NONE SEEN (0-2/HPF); WBC,URINE 0-1 (0-5/HPF)
[2024-04-25 17:01] LABS: BACTERIA,URINE RARE (NEGATIVE); EPITHELIAL CELLS,URINE RARE (NONE-FEW); MUCUS,URINE LIGHT (NONE-MOD)
[2024-04-25 17:02] LABS: ETHANOL BLOOD MEDICAL <3 mg/dL; LIPASE 12 U/L (16-77); MAGNESIUM 2.3 mg/dL (1.8-2.4)
[2024-04-25] MEDS: Insulin Regular, Human 100 Units/ML 10 ML Vial IVPUSH ONE (17:05)
[2024-04-25] MEDS: Insulin Regular, Human 100 Units/ML 10 ML Vial SUBCUT ONE (17:12)
[2024-04-25] MEDS: Iopamidol 755 MG/ML 500 ML Multipack Bottle IVPUSH STA (19:06)
[2024-04-25 19:47] LABS: CALCIUM 7.5 mg/dL (8.5-10.1); CARBON DIOXIDE,CO2 21.4 mmol/L (21.0-32.0); CREATININE 1.2 mg/dL (0.8-1.3); EST CRCL DRUG DOSING (CG) 62.87 mL/min; POTASSIUM,K 3.9 mmol/L (3.5-5.1)
[2024-04-25] MEDS: Pantoprazole 40 MG in Sodium Chloride 0.9% 10 ML IVPUSH ONE (21:03)
[2024-04-25] MEDS: Insulin Aspart 100 Units/ML 3 ML Pen SUBCUT SCH (22:52)
[2024-04-25] MEDS: LORazepam 2 MG/ML SDV IVPUSH PRN (22:59)
[2024-04-26] MEDS: Thiamine 200 MG/2 ML MDV IVPUSH SCH (00:06)
[2024-04-26] MEDS: Sodium Chloride 0.9% 1,000 ML IV SCH (03:05)
[2024-04-26 05:50] LABS: BASOPHILS ABSOLUTE AUTO 0.04 K/uL (0.00-0.20); BASOPHILS PERCENT AUTO 0.3 % (0.0-1.0); EOSINOPHILS ABSOLUTE AUTO 0.02 K/uL (0.00-0.45); EOSINOPHILS PERCENT AUTO 0.2 % (0.0-6.0); HEMATOCRIT 29.4 % (42.0-52.0); HEMOGLOBIN 9.5 g/dL (14.0-18.0); IMMATURE GRAN ABSOLUTE AUTO 0.19 K/uL (0.00-0.05); IMMATURE GRAN PERCENT AUTO 1.5 % (0.0-0.4); LYMPHOCYTES ABSOLUTE AUTO 1.82 K/uL (1.00-4.80); LYMPHOCYTES PERCENT AUTO 14.7 % (24.0-44.0); MEAN CORPUSCULAR HEMOGLOBIN 24.5 pg (28.0-32.0); MEAN CORPUSCULAR HGB CONC 32.3 g/dL (32.0-36.0); MEAN PLATELET VOLUME 9.7 fL (9.4-12.4); MONOCYTES PERCENT AUTO 9.7 % (0.0-8.0); NEUTROPHILS ABSOLUTE AUTO 9.15 K/uL (1.80-7.70); NEUTROPHILS PERCENT AUTO 73.6 % (41.0-71.0); PLATELET COUNT,PLT 143 K/uL (150-400); RED BLOOD CELL COUNT 3.87 M/uL (4.52-5.90); WHITE BLOOD CELL COUNT,WBC 12.42 K/uL (3.9-11.3)
[2024-04-26 06:16] LABS: CALCIUM 7.5 mg/dL (8.5-10.1); CARBON DIOXIDE,CO2 28.6 mmol/L (21.0-32.0); EST CRCL DRUG DOSING (CG) 77.91 mL/min; PHOSPHORUS 2.7 mg/dL (2.6-4.7); POTASSIUM,K 3.4 mmol/L (3.5-5.1); PROTEIN TOTAL,TP 6.1 g/dL (6.4-8.2)
[2024-04-26] MEDS: Pantoprazole 40 MG Tab.CR PO SCH (06:23)
[2024-04-26] MEDS: Insulin Glargine,Hum.Rec.Anlog 100 UNIT/ML 3 ML Pen SUBCUT SCH ×2 (06:44→20:11)
[2024-04-26] MEDS ORDERED: LORazepam 1 MG Tab PO PRN (07:30)
[2024-04-26] MEDS: Insulin Aspart 100 Units/ML 3 ML Pen SUBCUT SCH (07:31)
[2024-04-26] MEDS: Folic Acid 1 MG Tab PO SCH (07:44)
[2024-04-26] MEDS: Potassium Chloride 20 MEQ Tab.ER PO ONE (08:35)
[2024-04-26] MEDS: Gabapentin 300 MG Cap PO SCH (20:08)
[2024-04-27 06:20] LABS: BASOPHILS ABSOLUTE AUTO 0.02 K/uL (0.00-0.20); BASOPHILS PERCENT AUTO 0.4 % (0.0-1.0); EOSINOPHILS ABSOLUTE AUTO 0.08 K/uL (0.00-0.45); EOSINOPHILS PERCENT AUTO 1.4 % (0.0-6.0); HEMATOCRIT 31.6 % (42.0-52.0); IMMATURE GRAN ABSOLUTE AUTO 0.02 K/uL (0.00-0.05); IMMATURE GRAN PERCENT AUTO 0.4 % (0.0-0.4); LYMPHOCYTES ABSOLUTE AUTO 1.57 K/uL (1.00-4.80); LYMPHOCYTES PERCENT AUTO 27.7 % (24.0-44.0); MEAN CORPUSCULAR HEMOGLOBIN 24.3 pg (28.0-32.0); MEAN CORPUSCULAR HGB CONC 31.6 g/dL (32.0-36.0); MEAN CORPUSCULAR VOLUME 76.9 fL (83.0-99.0); MEAN PLATELET VOLUME 9.9 fL (9.4-12.4); MONOCYTES ABSOLUTE AUTO 0.56 K/uL (0.00-0.80); MONOCYTES PERCENT AUTO 9.9 % (0.0-8.0); NEUTROPHILS ABSOLUTE AUTO 3.42 K/uL (1.80-7.70); NEUTROPHILS PERCENT AUTO 60.2 % (41.0-71.0); PLATELET COUNT,PLT 149 K/uL (150-400); RED BLOOD CELL COUNT 4.11 M/uL (4.52-5.90); WHITE BLOOD CELL COUNT,WBC 5.67 K/uL (3.9-11.3)
[2024-04-27 06:43] LABS: A/G RATIO 0.8 (0.9-1.6); ALBUMIN 2.7 g/dL (3.4-5.0); BILIRUBIN TOTAL 0.4 mg/dL (0.2-1.0); CALCIUM 8.2 mg/dL (8.5-10.1); CARBON DIOXIDE,CO2 25.8 mmol/L (21.0-32.0); CREATININE 0.8 mg/dL (0.8-1.3); EST CRCL DRUG DOSING (CG) 97.39 mL/min; MAGNESIUM 1.7 mg/dL (1.8-2.4); PHOSPHORUS 2.4 mg/dL (2.6-4.7); POTASSIUM,K 3.8 mmol/L (3.5-5.1); PROTEIN TOTAL,TP 5.9 g/dL (6.4-8.2)
[2024-04-27] MEDS: Magnesium Sulfate/Water 2 GM in Premix Bag 1 BAG IV ONE (09:39)
[2024-04-27] MEDS: Ondansetron 4 MG/2 ML SDV IVPUSH PRN (09:55)
[2024-04-27] MEDS: Phosphorus #1 250 MG Tab PO SCH (11:41)
[2024-04-27] MEDS: Insulin Glargine,Hum.Rec.Anlog 100 UNIT/ML 3 ML Pen SUBCUT SCH (11:44)
[2024-04-27 13:57] LABS: HEMOGLOBIN A1C 12.8 %
[2024-04-27] MEDS: LORazepam 2 MG/ML SDV IVPUSH PRN (15:41)
[2024-04-27 19:45] LABS: BASOPHILS ABSOLUTE AUTO 0.03 K/uL (0.00-0.20); BASOPHILS PERCENT AUTO 0.7 % (0.0-1.0); EOSINOPHILS ABSOLUTE AUTO 0.09 K/uL (0.00-0.45); EOSINOPHILS PERCENT AUTO 2.2 % (0.0-6.0); HEMATOCRIT 33.6 % (42.0-52.0); HEMOGLOBIN 10.5 g/dL (14.0-18.0); IMMATURE GRAN ABSOLUTE AUTO 0.01 K/uL (0.00-0.05); IMMATURE GRAN PERCENT AUTO 0.2 % (0.0-0.4); LYMPHOCYTES ABSOLUTE AUTO 0.98 K/uL (1.00-4.80); MEAN CORPUSCULAR HEMOGLOBIN 24.1 pg (28.0-32.0); MEAN CORPUSCULAR HGB CONC 31.3 g/dL (32.0-36.0); MEAN CORPUSCULAR VOLUME 77.2 fL (83.0-99.0); MEAN PLATELET VOLUME 10.4 fL (9.4-12.4); MONOCYTES ABSOLUTE AUTO 0.39 K/uL (0.00-0.80); MONOCYTES PERCENT AUTO 9.5 % (0.0-8.0); NEUTROPHILS ABSOLUTE AUTO 2.59 K/uL (1.80-7.70); NEUTROPHILS PERCENT AUTO 63.4 % (41.0-71.0); PLATELET COUNT,PLT 143 K/uL (150-400); RED BLOOD CELL COUNT 4.35 M/uL (4.52-5.90); WHITE BLOOD CELL COUNT,WBC 4.09 K/uL (3.9-11.3)
[2024-04-27 20:48] LABS: A/G RATIO 0.8 (0.9-1.6); ALBUMIN 2.8 g/dL (3.4-5.0); BILIRUBIN TOTAL 0.4 mg/dL (0.2-1.0); CALCIUM 8.5 mg/dL (8.5-10.1); CARBON DIOXIDE,CO2 29.5 mmol/L (21.0-32.0); CREATININE 0.8 mg/dL (0.8-1.3); EST CRCL DRUG DOSING (CG) 97.39 mL/min; POTASSIUM,K 4.1 mmol/L (3.5-5.1); PROTEIN TOTAL,TP 6.2 g/dL (6.4-8.2)
[2024-04-28 06:45] LABS: BASOPHILS ABSOLUTE AUTO 0.03 K/uL (0.00-0.20); BASOPHILS PERCENT AUTO 0.7 % (0.0-1.0); EOSINOPHILS ABSOLUTE AUTO 0.17 K/uL (0.00-0.45); HEMATOCRIT 31.2 % (42.0-52.0); HEMOGLOBIN 9.9 g/dL (14.0-18.0); IMMATURE GRAN ABSOLUTE AUTO 0.01 K/uL (0.00-0.05); IMMATURE GRAN PERCENT AUTO 0.2 % (0.0-0.4); LYMPHOCYTES ABSOLUTE AUTO 1.59 K/uL (1.00-4.80); MEAN CORPUSCULAR HEMOGLOBIN 24.3 pg (28.0-32.0); MEAN CORPUSCULAR HGB CONC 31.7 g/dL (32.0-36.0); MEAN CORPUSCULAR VOLUME 76.7 fL (83.0-99.0); MEAN PLATELET VOLUME 10.1 fL (9.4-12.4); MONOCYTES PERCENT AUTO 9.3 % (0.0-8.0); NEUTROPHILS PERCENT AUTO 48.8 % (41.0-71.0); PLATELET COUNT,PLT 145 K/uL (150-400); RED BLOOD CELL COUNT 4.07 M/uL (4.52-5.90)
[2024-04-28 07:20] LABS: MAGNESIUM 1.8 mg/dL (1.8-2.4); PHOSPHORUS 4.5 mg/dL (2.6-4.7)
[2024-04-28] MEDS ORDERED: LORazepam 2 MG/ML SDV IVPUSH PRN ×2 (13:15→13:32)
[2024-04-28] MEDS ORDERED: LORazepam 1 MG Tab PO PRN (13:22)
== END 2024-04-28 14:50 | disposition home or self-care (01) | DRG 638 ==
LOC: MW.ED 15:59 → UNDOADMOB 20:30 → MW.MS 20:30 → OBSVTOIN 04-26 10:46 → MW.MS 04-26 16:49
PROVIDERS: ADMIT Internal Medicine; ATTEND Internal Medicine
DX: E10.10 Type 1 diabetes mellitus with ketoacidosis without coma (principal); F10.139 Alcohol abuse with withdrawal, unspecified; N17.9 Acute kidney failure, unspecified; R44.0 Auditory hallucinations; K29.20 Alcoholic gastritis without bleeding; E86.0 Dehydration; E87.6 Hypokalemia; R25.1 Tremor, unspecified; K20.90 Esophagitis, unspecified without bleeding; E10.649 Type 1 diabetes mellitus with hypoglycemia without coma; F17.210 Nicotine dependence, cigarettes, uncomplicated; Z88.0 Allergy status to penicillin; Z88.1 Allergy status to other antibiotic agents; Z97.3 Presence of spectacles and contact lenses; Z79.4 Long term (current) use of insulin; Z79.899 Other long term (current) drug therapy
CPT/HCPCS: 36415; 74177; 74177-26; 80048; 80053; 80307; 81001; 82009; 82803; 82947; 83036; 83605; 83690; 83735; 84100; 85025; 93005; 93010; 96361; 96374; 96375; 96376; 97161-GP; 99223; 99232; 99233; 99239; 99285; 99285-25; A9270-GY; G0378; J1815-GY; J2060; J2405; J2470; J3411; J3475; J3490; J7030; Q9967

== ENCOUNTER 2024-06-12 07:26 | Inpatient (IN) | payer SELFPAY ==
[2024-06-12] MEDS ORDERED: Sodium Chloride 0.9% 10 ML Syringe FLUSH PRN (07:31)
[2024-06-12] MEDS ORDERED: Sodium Chloride 0.9% 20 ML SDV IV PRN (07:31)
[2024-06-12] MEDS ORDERED: Sodium Chloride 0.9% 2.5 ML Syringe FLUSH PRN (07:31)
[2024-06-12] MEDS ORDERED: 50% Dextrose in Water 50 ML Syringe IVPUSH PRN (07:32)
[2024-06-12] MEDS ORDERED: Glucagon,Human Recombinant 1 MG Vial IM PRN (07:32)
[2024-06-12] MEDS: Sodium Chloride 0.9% 2,000 ML IV ONE (07:47)
[2024-06-12] MEDS: Ondansetron 4 MG/2 ML SDV IVPUSH ONE (07:47)
[2024-06-12] MEDS: Insulin Regular, Human 100 Units/ML 10 ML Vial IVPUSH ONE (07:50)
[2024-06-12 07:57] LABS: BASE EXCESS VENOUS -20.2 (-2.0-3.0); PH,VENOUS 7.1 (7.31-7.41)
[2024-06-12 07:58] LABS: BASOPHILS ABSOLUTE AUTO 0.05 K/uL (0.00-0.20); BASOPHILS PERCENT AUTO 0.3 % (0.0-1.0); HEMOGLOBIN 12.2 g/dL (14.0-18.0); IMMATURE GRAN ABSOLUTE AUTO 0.16 K/uL (0.00-0.05); IMMATURE GRAN PERCENT AUTO 0.9 % (0.0-0.4); LYMPHOCYTES ABSOLUTE AUTO 0.66 K/uL (1.00-4.80); LYMPHOCYTES PERCENT AUTO 3.5 % (24.0-44.0); MEAN CORPUSCULAR HEMOGLOBIN 23.3 pg (28.0-32.0); MEAN CORPUSCULAR VOLUME 80.2 fL (83.0-99.0); MEAN PLATELET VOLUME 9.7 fL (9.4-12.4); MONOCYTES ABSOLUTE AUTO 0.67 K/uL (0.00-0.80); MONOCYTES PERCENT AUTO 3.6 % (0.0-8.0); NEUTROPHILS ABSOLUTE AUTO 17.22 K/uL (1.80-7.70); NEUTROPHILS PERCENT AUTO 91.7 % (41.0-71.0); PLATELET COUNT,PLT 243 K/uL (150-400); RED BLOOD CELL COUNT 5.24 M/uL (4.52-5.90); WHITE BLOOD CELL COUNT,WBC 18.76 K/uL (3.9-11.3)
[2024-06-12 08:29] LABS: A/G RATIO 0.9 (0.9-1.6); ALANINE AMINOTRANSFERASE,ALT 58 IU/L (14-63); ALBUMIN 4.2 g/dL (3.4-5.0); ALKALINE PHOSPHATASE 158 U/L (46-116); ASPARTATE AMNIOTRANSFERASE,AST 24 IU/L (15-37); BILIRUBIN TOTAL 1.1 mg/dL (0.2-1.0); BLOOD UREA NITROGEN,BUN 25 mg/dL (7.0-18.0); CARBON DIOXIDE,CO2 9.4 mmol/L (21.0-32.0); CHLORIDE,CL 89 mmol/L (98-107); CREATININE 1.9 mg/dL (0.8-1.3); LIPASE 15 U/L (16-77); MAGNESIUM 2.7 mg/dL (1.8-2.4); POTASSIUM,K 4.4 mmol/L (3.5-5.1); PRO B-TYPE NATRIUR PEPT,BNPPRO 804 pg/mL (0-125); SODIUM,NA 135 mmol/L (136-148)
[2024-06-12 08:55] LABS: ESTIMATED GFR 44 mL/min (>60); GLUCOSE RANDOM 823 mg/dL (74-106)
[2024-06-12] MEDS: Sodium Chloride 0.9% 1,000 ML IV ONE ×2 (09:00→09:44)
[2024-06-12] MEDS ORDERED: Insulin Regular in 0.9 % NACL 100 ML IV SCH ×2 (09:30→10:00)
[2024-06-12] MEDS: Insulin Regular in 0.9 % NACL 100 ML IV SCH ×2 (10:00→19:00)
[2024-06-12 10:25] LABS: A/G RATIO 0.9 (0.9-1.6); ALANINE AMINOTRANSFERASE,ALT 51 IU/L (14-63); ALBUMIN 3.5 g/dL (3.4-5.0); ALKALINE PHOSPHATASE 130 U/L (46-116); ASPARTATE AMNIOTRANSFERASE,AST 20 IU/L (15-37); BILIRUBIN TOTAL 0.9 mg/dL (0.2-1.0); BLOOD UREA NITROGEN,BUN 22 mg/dL (7.0-18.0); CALCIUM 7.6 mg/dL (8.5-10.1); CREATININE 1.4 mg/dL (0.8-1.3); MAGNESIUM 2.3 mg/dL (1.8-2.4); PROTEIN TOTAL,TP 7.6 g/dL (6.4-8.2)
[2024-06-12 10:35] LABS: POTASSIUM,K 4.6 mmol/L (3.5-5.1); SODIUM,NA 135 mmol/L (136-148)
[2024-06-12 10:36] LABS: CHLORIDE,CL 97 mmol/L (98-107); ESTIMATED GFR 64 mL/min (>60); GLUCOSE RANDOM 605 mg/dL (74-106)
[2024-06-12 11:29] LABS: BASE EXCESS VENOUS -16.7 (-2.0-3.0); PH,VENOUS 7.18 (7.31-7.41)
[2024-06-12] MEDS: droPERidol 5 MG/2 ML SDV IVPUSH PRN (12:26)
[2024-06-12] MEDS: Sodium Chloride 0.9% 1,000 ML IV SCH (12:57)
[2024-06-12] MEDS: Folic Acid 1 MG/0.2 ML UD Syringe SUBCUT SCH (13:04)
[2024-06-12] MEDS: Pantoprazole 40 MG Tab.CR PO SCH (13:04)
[2024-06-12] MEDS: Thiamine 200 MG/2 ML MDV IVPUSH SCH (13:04)
[2024-06-12] MEDS: Dextrose 5%-0.9% NaCl 1,000 ML IV SCH (13:30)
[2024-06-12 15:04] LABS: CALCIUM 8.2 mg/dL (8.5-10.1); CARBON DIOXIDE,CO2 18.5 mmol/L (21.0-32.0); CREATININE 1.2 mg/dL (0.8-1.3); EST CRCL DRUG DOSING (CG) 67.92 mL/min; POTASSIUM,K 4.1 mmol/L (3.5-5.1)
[2024-06-12 15:09] LABS: LACTIC ACID 1.7 mmol/L (0.4-2.0)
[2024-06-12] MEDS: LORazepam 2 MG/ML SDV IVPUSH PRN (15:27)
[2024-06-12 15:33] LABS: A/G RATIO 0.8 (0.9-1.6); ALBUMIN 3.4 g/dL (3.4-5.0); BILIRUBIN TOTAL 0.7 mg/dL (0.2-1.0); CALCIUM 7.9 mg/dL (8.5-10.1); CARBON DIOXIDE,CO2 12.6 mmol/L (21.0-32.0); CREATININE 1.7 mg/dL (0.8-1.3); EST CRCL DRUG DOSING (CG) 47.95 mL/min; MAGNESIUM 2.4 mg/dL (1.8-2.4); POTASSIUM,K 4.1 mmol/L (3.5-5.1); PROTEIN TOTAL,TP 7.6 g/dL (6.4-8.2)
[2024-06-12 18:31] LABS: CALCIUM 8.1 mg/dL (8.5-10.1); CARBON DIOXIDE,CO2 25.6 mmol/L (21.0-32.0); CREATININE 1.1 mg/dL (0.8-1.3); EST CRCL DRUG DOSING (CG) 74.1 mL/min; POTASSIUM,K 3.8 mmol/L (3.5-5.1)
[2024-06-12] MEDS ORDERED: Ondansetron 4 MG/2 ML SDV IVPUSH PRN (18:57)
[2024-06-12] MEDS: Lactated Ringers 1,000 ML IV SCH (19:25)
[2024-06-12 22:29] LABS: CALCIUM 8.3 mg/dL (8.5-10.1); CARBON DIOXIDE,CO2 27.9 mmol/L (21.0-32.0); EST CRCL DRUG DOSING (CG) 81.51 mL/min
[2024-06-12 22:32] LABS: POTASSIUM,K 3.7 mmol/L (3.5-5.1)
[2024-06-13 02:32] LABS: CALCIUM 8.5 mg/dL (8.5-10.1); CARBON DIOXIDE,CO2 24.4 mmol/L (21.0-32.0); CREATININE 0.9 mg/dL (0.8-1.3); EST CRCL DRUG DOSING (CG) 90.56 mL/min; POTASSIUM,K 3.7 mmol/L (3.5-5.1)
[2024-06-13] MEDS ORDERED: 50% Dextrose in Water 50 ML Syringe IVPUSH PRN (03:49)
[2024-06-13] MEDS ORDERED: Glucagon,Human Recombinant 1 MG Vial IM PRN (03:49)
[2024-06-13 06:13] LABS: HEMOGLOBIN 9.4 g/dL (14.0-18.0); MEAN CORPUSCULAR HEMOGLOBIN 23.7 pg (28.0-32.0); MEAN CORPUSCULAR HGB CONC 31.3 g/dL (32.0-36.0); MEAN CORPUSCULAR VOLUME 75.8 fL (83.0-99.0); MEAN PLATELET VOLUME 9.5 fL (9.4-12.4); PLATELET COUNT,PLT 174 K/uL (150-400); RED BLOOD CELL COUNT 3.96 M/uL (4.52-5.90); WHITE BLOOD CELL COUNT,WBC 14.04 K/uL (3.9-11.3)
[2024-06-13 06:27] LABS: CALCIUM 8.4 mg/dL (8.5-10.1); CARBON DIOXIDE,CO2 24.3 mmol/L (21.0-32.0); CREATININE 0.8 mg/dL (0.8-1.3); EST CRCL DRUG DOSING (CG) 103.57 mL/min; POTASSIUM,K 3.5 mmol/L (3.5-5.1)
[2024-06-13] MEDS: Insulin Regular, Human 100 Units/ML 10 ML Vial SUBCUT SCH (07:54)
[2024-06-13] MEDS: Insulin Glargine,Hum.Rec.Anlog 100 UNIT/ML 3 ML Pen SUBCUT SCH (10:04)
[2024-06-13] MEDS: Phenol 1.4% Oral Spray 177 ML Bottle MUCMEM PRN (10:18)
[2024-06-14 06:00] LABS: BASOPHILS ABSOLUTE AUTO 0.03 K/uL (0.00-0.20); BASOPHILS PERCENT AUTO 0.5 % (0.0-1.0); EOSINOPHILS ABSOLUTE AUTO 0.22 K/uL (0.00-0.45); EOSINOPHILS PERCENT AUTO 3.6 % (0.0-6.0); HEMATOCRIT 31.4 % (42.0-52.0); HEMOGLOBIN 9.9 g/dL (14.0-18.0); IMMATURE GRAN ABSOLUTE AUTO 0.02 K/uL (0.00-0.05); IMMATURE GRAN PERCENT AUTO 0.3 % (0.0-0.4); LYMPHOCYTES ABSOLUTE AUTO 1.64 K/uL (1.00-4.80); LYMPHOCYTES PERCENT AUTO 26.6 % (24.0-44.0); MEAN CORPUSCULAR HEMOGLOBIN 23.8 pg (28.0-32.0); MEAN CORPUSCULAR HGB CONC 31.5 g/dL (32.0-36.0); MEAN CORPUSCULAR VOLUME 75.5 fL (83.0-99.0); MEAN PLATELET VOLUME 10.2 fL (9.4-12.4); MONOCYTES ABSOLUTE AUTO 0.56 K/uL (0.00-0.80); MONOCYTES PERCENT AUTO 9.1 % (0.0-8.0); NEUTROPHILS PERCENT AUTO 59.9 % (41.0-71.0); PLATELET COUNT,PLT 156 K/uL (150-400); RED BLOOD CELL COUNT 4.16 M/uL (4.52-5.90); WHITE BLOOD CELL COUNT,WBC 6.17 K/uL (3.9-11.3)
[2024-06-14 06:35] LABS: CALCIUM 8.4 mg/dL (8.5-10.1); CARBON DIOXIDE,CO2 25.3 mmol/L (21.0-32.0); CREATININE 0.6 mg/dL (0.8-1.3); EST CRCL DRUG DOSING (CG) 138.09 mL/min; POTASSIUM,K 3.3 mmol/L (3.5-5.1)
[2024-06-14] MEDS: Acetaminophen 325 MG Tab PO PRN (09:01)
[2024-06-14] MEDS: Potassium Chloride 20 MEQ Tab.ER PO ONE (09:59)
== END 2024-06-14 10:45 | disposition home or self-care (01) | DRG 638 ==
LOC: MW.ED 07:26 → MW.ICU 09:36 → OBSVTOIN 06-13 12:38 → MW.MS 06-13 12:45
PROVIDERS: ADMIT Internal Medicine; ATTEND Internal Medicine
DX: E10.10 Type 1 diabetes mellitus with ketoacidosis without coma (principal); N17.9 Acute kidney failure, unspecified; D72.829 Elevated white blood cell count, unspecified; E86.0 Dehydration; R00.0 Tachycardia, unspecified; F17.210 Nicotine dependence, cigarettes, uncomplicated; F10.20 Alcohol dependence, uncomplicated; Z88.0 Allergy status to penicillin; Z88.1 Allergy status to other antibiotic agents; Z79.4 Long term (current) use of insulin; Z79.899 Other long term (current) drug therapy
CPT/HCPCS: 36415; 80048; 80053; 80307; 82009; 82803; 82947; 83605; 83690; 83735; 83880; 85025; 85027; 93005; 93010; 96361; 96372; 96374; 96375; 96376; 99222; 99232; 99238; 99285-25; 99291; 99292; A9270-GY; G0378; J1790; J1815; J1815-GY; J2060; J2405; J3411; J3490; J7030; J7042; J7120

== ENCOUNTER 2024-07-12 21:47 | Inpatient (IN) | payer MEDICAID ==
[2024-07-12] MEDS: Ondansetron 4 MG/2 ML SDV IVPUSH ONE (22:07)
[2024-07-12] MEDS: Sodium Chloride 0.9% 1,000 ML IV ONE (22:07)
[2024-07-12] MEDS: Famotidine 20 MG/2 ML SDV IVPUSH ONE (22:08)
[2024-07-12] MEDS: fentaNYL 50 MCG/ML SDV IVPUSH ONE (22:11)
[2024-07-12 22:24] LABS: BASE EXCESS VENOUS -27.3 (-2.0-3.0); BASOPHILS ABSOLUTE AUTO 0.07 K/uL (0.00-0.20); BASOPHILS PERCENT AUTO 0.3 % (0.0-1.0); BICARBONATE,VENOUS 5 mEQ/mL (22-28); EOSINOPHILS ABSOLUTE AUTO 0.02 K/uL (0.00-0.45); EOSINOPHILS PERCENT AUTO 0.1 % (0.0-6.0); HEMATOCRIT 39.3 % (42.0-52.0); HEMOGLOBIN 11.7 g/dL (14.0-18.0); IMMATURE GRAN ABSOLUTE AUTO 0.22 K/uL (0.00-0.05); IMMATURE GRAN PERCENT AUTO 0.9 % (0.0-0.4); LYMPHOCYTES ABSOLUTE AUTO 0.87 K/uL (1.00-4.80); LYMPHOCYTES PERCENT AUTO 3.7 % (24.0-44.0); MEAN CORPUSCULAR HEMOGLOBIN 23.7 pg (28.0-32.0); MEAN CORPUSCULAR HGB CONC 29.8 g/dL (32.0-36.0); MEAN CORPUSCULAR VOLUME 79.7 fL (83.0-99.0); MEAN PLATELET VOLUME 9.8 fL (9.4-12.4); MONOCYTES ABSOLUTE AUTO 1.46 K/uL (0.00-0.80); MONOCYTES PERCENT AUTO 6.1 % (0.0-8.0); NEUTROPHILS ABSOLUTE AUTO 21.11 K/uL (1.80-7.70); NEUTROPHILS PERCENT AUTO 88.9 % (41.0-71.0); PCO2 VENOUS 24 mmHG (41-51); PH,VENOUS 6.89 (7.31-7.41); PLATELET COUNT,PLT 201 K/uL (150-400); RED BLOOD CELL COUNT 4.93 M/uL (4.52-5.90); WHITE BLOOD CELL COUNT,WBC 23.75 K/uL (3.9-11.3)
[2024-07-12 22:27] LABS: PO2 VENOUS < 30 mmHG (35-45)
[2024-07-12] MEDS: droPERidol 5 MG/2 ML SDV IVPUSH ONE (22:34)
[2024-07-12 22:49] LABS: A/G RATIO 0.8 (0.9-1.6); ALANINE AMINOTRANSFERASE,ALT 25 IU/L (14-63); ALBUMIN 3.6 g/dL (3.4-5.0); ALKALINE PHOSPHATASE 154 U/L (46-116); ASPARTATE AMNIOTRANSFERASE,AST 27 IU/L (15-37); BILIRUBIN TOTAL 0.6 mg/dL (0.2-1.0); BLOOD UREA NITROGEN,BUN 26 mg/dL (7.0-18.0); CALCIUM 8.9 mg/dL (8.5-10.1); CARBON DIOXIDE,CO2 6.1 mmol/L (21.0-32.0); CHLORIDE,CL 92 mmol/L (98-107); CREATININE 1.9 mg/dL (0.8-1.3); EST CRCL DRUG DOSING (CG) 43.25 mL/min; ETHANOL BLOOD MEDICAL <3 mg/dL; GLUCOSE RANDOM 360 mg/dL (74-106); MAGNESIUM 2.6 mg/dL (1.8-2.4); PHOSPHORUS 5.2 mg/dL (2.6-4.7); POTASSIUM,K 5.5 mmol/L (3.5-5.1); PROTEIN TOTAL,TP 8.4 g/dL (6.4-8.2); SODIUM,NA 127 mmol/L (136-148)
[2024-07-12 22:58] LABS: ESTIMATED GFR 44 mL/min (>60)
[2024-07-12 23:16] LABS: APPEARANCE,URINE SLT CLOUDY; COLOR,URINE YELLOW; GLUCOSE,URINE 250 mg/dL (NEGATIVE); KETONES,URINE >=80 mg/dL (NEGATIVE); LEUKOCYTE ESTERASE,URINE NEGATIVE (NEGATIVE); NITRITE,URINE NEGATIVE (NEGATIVE); OCCULT BLOOD,URINE MODERATE (NEGATIVE); PH,URINE 5.5 (5.0-8.0); PROTEIN,URINE 100 mg/dL (NEGATIVE); UROBILINOGEN,URINE 0.2 EU/dL (<2.0)
[2024-07-12 23:22] LABS: BILIRUBIN,URINE LARGE (NEGATIVE)
[2024-07-12 23:25] LABS: AMORPHOUS SEDIMENT,URINE MODERATE (NEGATIVE); AMPHETAMINES SCREEN, URINE NEGATIVE (CUTOFF=500); BACTERIA,URINE FEW (NEGATIVE); BARBITURATE SCREEN,URINE NEGATIVE (CUTOFF=200); BENZODIAZEPINES SCREEN,URINE NEGATIVE (CUTOFF=150); BUPRENORPHINE SCREEN,URINE NEGATIVE (CUTOFF=10); EPITHELIAL CELLS,URINE OCCASIONAL (NONE-FEW); METHADONE SCREEN, URINE NEGATIVE (CUTOFF=200); METHAMPHETAMINES SCREEN, URINE NEGATIVE (CUTOFF=500); OXYCODONE SCREEN,URINE NEGATIVE (CUT0FF=100); PCP SCREEN,URINE NEGATIVE (CUTOFF=25); THC SCREEN,URINE 20 NG/ML NEGATIVE (CUTOFF=50); WBC,URINE 0-2 (0-5/HPF)
[2024-07-12 23:32] LABS: LIPASE 1779 U/L (16-77)
[2024-07-12] MEDS: Lactated Ringers 1,000 ML IV ONE (23:36)
[2024-07-12] MEDS: Insulin Regular in 0.9 % NACL 100 ML ONE (23:38)
[2024-07-12] MEDS: Insulin Regular in 0.9 % NACL 100 ML IV SCH (23:44)
[2024-07-13] MEDS: Dextrose 5%-0.9% NaCl 1,000 ML IV SCH (01:17)
[2024-07-13] MEDS: Insulin Regular in 0.9 % NACL 100 ML IV SCH (01:21)
[2024-07-13 01:47] LABS: CALCIUM 8.5 mg/dL (8.5-10.1); CARBON DIOXIDE,CO2 7.8 mmol/L (21.0-32.0); CREATININE 1.6 mg/dL (0.8-1.3); EST CRCL DRUG DOSING (CG) 49.68 mL/min; POTASSIUM,K 5.6 mmol/L (3.5-5.1)
[2024-07-13] MEDS ORDERED: LORazepam 2 MG/ML SDV IVPUSH PRN ×2 (03:18→06:49)
[2024-07-13] MEDS: Folic Acid 1 MG/0.2 ML UD Syringe SUBCUT SCH (03:34)
[2024-07-13] MEDS: Thiamine 200 MG/2 ML MDV IVPUSH SCH (03:34)
[2024-07-13 05:31] LABS: BASOPHILS ABSOLUTE AUTO 0.02 K/uL (0.00-0.20); BASOPHILS PERCENT AUTO 0.1 % (0.0-1.0); HEMATOCRIT 32.4 % (42.0-52.0); IMMATURE GRAN PERCENT AUTO 0.5 % (0.0-0.4); LYMPHOCYTES ABSOLUTE AUTO 0.81 K/uL (1.00-4.80); LYMPHOCYTES PERCENT AUTO 4.4 % (24.0-44.0); MEAN CORPUSCULAR HEMOGLOBIN 23.3 pg (28.0-32.0); MEAN CORPUSCULAR HGB CONC 30.9 g/dL (32.0-36.0); MEAN CORPUSCULAR VOLUME 75.3 fL (83.0-99.0); MEAN PLATELET VOLUME 8.8 fL (9.4-12.4); MONOCYTES PERCENT AUTO 5.4 % (0.0-8.0); NEUTROPHILS ABSOLUTE AUTO 16.61 K/uL (1.80-7.70); NEUTROPHILS PERCENT AUTO 89.6 % (41.0-71.0); PLATELET COUNT,PLT 150 K/uL (150-400); WHITE BLOOD CELL COUNT,WBC 18.54 K/uL (3.9-11.3)
[2024-07-13 06:22] LABS: A/G RATIO 0.7 (0.9-1.6); ALBUMIN 2.9 g/dL (3.4-5.0); BILIRUBIN TOTAL 0.6 mg/dL (0.2-1.0); CALCIUM 8.4 mg/dL (8.5-10.1); CARBON DIOXIDE,CO2 7.9 mmol/L (21.0-32.0); CREATININE 1.6 mg/dL (0.8-1.3); EST CRCL DRUG DOSING (CG) 49.68 mL/min; POTASSIUM,K 5.5 mmol/L (3.5-5.1); PROTEIN TOTAL,TP 7.1 g/dL (6.4-8.2)
[2024-07-13 07:27] LABS: CORONAVIRUS COVID-19 NAA NEGATIVE (NEGATIVE); INFLUENZA A NAA NEGATIVE (NEGATIVE); INFLUENZA B NAA NEGATIVE (NEGATIVE); RESPIRATORY SYNCYTIAL VIR NAA NEGATIVE (NEGATIVE)
[2024-07-13 08:28] LABS: HEMOGLOBIN A1C 13.5 %
[2024-07-13] MEDS ORDERED: FLU (Flulaval Triv) 24-25(6MOS UP)/PF 45 MCG/0.5 ML Syringe IM ONE (09:00)
[2024-07-13 09:26] LABS: CALCIUM 8.6 mg/dL (8.5-10.1); CARBON DIOXIDE,CO2 14.4 mmol/L (21.0-32.0); CREATININE 1.6 mg/dL (0.8-1.3); EST CRCL DRUG DOSING (CG) 49.68 mL/min; POTASSIUM,K 4.6 mmol/L (3.5-5.1)
[2024-07-13 09:59] LABS: BASE EXCESS VENOUS -13.4 (-2.0-3.0); PH,VENOUS 7.3 (7.31-7.41)
[2024-07-13] MEDS: Pantoprazole 40 MG in Sodium Chloride 0.9% 10 ML IVPUSH SCH (10:48)
[2024-07-13] MEDS: Azithromycin 500 MG in Sodium Chloride 0.9% 250 ML IV SCH (13:37)
[2024-07-13 13:58] LABS: CALCIUM 8.8 mg/dL (8.5-10.1); CARBON DIOXIDE,CO2 15.2 mmol/L (21.0-32.0); CREATININE 1.6 mg/dL (0.8-1.3); EST CRCL DRUG DOSING (CG) 49.68 mL/min; POTASSIUM,K 4.2 mmol/L (3.5-5.1)
[2024-07-13 14:07] LABS: LACTIC ACID 0.8 mmol/L (0.4-2.0)
[2024-07-13] MEDS: cefTRIAXone 2 GM in Sodium Chloride 0.9% 50 ML IV SCH (14:18)
[2024-07-13 18:07] LABS: CALCIUM 8.7 mg/dL (8.5-10.1); CARBON DIOXIDE,CO2 16.5 mmol/L (21.0-32.0); CREATININE 1.4 mg/dL (0.8-1.3); EST CRCL DRUG DOSING (CG) 56.78 mL/min; POTASSIUM,K 3.7 mmol/L (3.5-5.1)
[2024-07-13 21:38] LABS: CALCIUM 8.8 mg/dL (8.5-10.1); CARBON DIOXIDE,CO2 17.1 mmol/L (21.0-32.0); CREATININE 1.4 mg/dL (0.8-1.3); EST CRCL DRUG DOSING (CG) 56.78 mL/min; POTASSIUM,K 3.4 mmol/L (3.5-5.1)
[2024-07-14 01:23] LABS: CALCIUM 8.4 mg/dL (8.5-10.1); CARBON DIOXIDE,CO2 16.1 mmol/L (21.0-32.0); CREATININE 1.2 mg/dL (0.8-1.3); EST CRCL DRUG DOSING (CG) 66.24 mL/min; POTASSIUM,K 3.2 mmol/L (3.5-5.1)
[2024-07-14 02:30] LABS: PHOSPHORUS 1.8 mg/dL (2.6-4.7)
[2024-07-14] MEDS: Potassium Chloride 10 MEQ in Premix Bag 1 BAG IV SCH ×2 (02:30→23:25)
[2024-07-14] MEDS ORDERED: Sodium Phosphate 15 mMole/5 ML SDV IV ONE (02:52)
[2024-07-14] MEDS: Sodium Phosphate 30 MMOLE in Sodium Chloride 0.9% 250 ML IV ONE (03:44)
[2024-07-14] MEDS ORDERED: Digoxin 500 MCG/2 ML Amp IVPUSH SCH (05:15)
[2024-07-14 05:33] LABS: BASOPHILS ABSOLUTE AUTO 0.02 K/uL (0.00-0.20); BASOPHILS PERCENT AUTO 0.3 % (0.0-1.0); EOSINOPHILS ABSOLUTE AUTO 0.05 K/uL (0.00-0.45); EOSINOPHILS PERCENT AUTO 0.7 % (0.0-6.0); HEMATOCRIT 28.6 % (42.0-52.0); HEMOGLOBIN 8.9 g/dL (14.0-18.0); IMMATURE GRAN ABSOLUTE AUTO 0.07 K/uL (0.00-0.05); LYMPHOCYTES ABSOLUTE AUTO 1.09 K/uL (1.00-4.80); LYMPHOCYTES PERCENT AUTO 16.2 % (24.0-44.0); MEAN CORPUSCULAR HEMOGLOBIN 23.2 pg (28.0-32.0); MEAN CORPUSCULAR HGB CONC 31.1 g/dL (32.0-36.0); MEAN CORPUSCULAR VOLUME 74.5 fL (83.0-99.0); MEAN PLATELET VOLUME 9.7 fL (9.4-12.4); MONOCYTES PERCENT AUTO 8.9 % (0.0-8.0); NEUTROPHILS PERCENT AUTO 72.9 % (41.0-71.0); PLATELET COUNT,PLT 121 K/uL (150-400); RED BLOOD CELL COUNT 3.84 M/uL (4.52-5.90); WHITE BLOOD CELL COUNT,WBC 6.73 K/uL (3.9-11.3)
[2024-07-14 06:02] LABS: ALBUMIN 2.4 g/dL (3.4-5.0); BILIRUBIN TOTAL 0.3 mg/dL (0.2-1.0); CALCIUM 8.5 mg/dL (8.5-10.1); CARBON DIOXIDE,CO2 15.7 mmol/L (21.0-32.0); CREATININE 1.1 mg/dL (0.8-1.3); EST CRCL DRUG DOSING (CG) 75.32 mL/min; POTASSIUM,K 3.6 mmol/L (3.5-5.1); PROTEIN TOTAL,TP 6.1 g/dL (6.4-8.2)
[2024-07-14 06:04] LABS: A/G RATIO 0.7 (0.9-1.6)
[2024-07-14] MEDS: Sodium Chloride 77 MEQ in Dextrose 10% in Water 500 ML IV SCH (07:32)
[2024-07-14 10:23] LABS: CALCIUM 8.4 mg/dL (8.5-10.1); CREATININE 1.2 mg/dL (0.8-1.3); EST CRCL DRUG DOSING (CG) 69.05 mL/min; POTASSIUM,K 3.1 mmol/L (3.5-5.1)
[2024-07-14] MEDS: Potassium Chloride 100 ML IV SCH (11:24)
[2024-07-14] MEDS: Acetaminophen 325 MG Tab PO ONE (11:25)
[2024-07-14 13:20] LABS: CALCIUM 8.2 mg/dL (8.5-10.1); CARBON DIOXIDE,CO2 16.5 mmol/L (21.0-32.0); CREATININE 1.3 mg/dL (0.8-1.3); EST CRCL DRUG DOSING (CG) 63.73 mL/min; POTASSIUM,K 3.3 mmol/L (3.5-5.1)
[2024-07-14 17:48] LABS: CALCIUM 8.7 mg/dL (8.5-10.1); CARBON DIOXIDE,CO2 16.9 mmol/L (21.0-32.0); CREATININE 1.1 mg/dL (0.8-1.3); EST CRCL DRUG DOSING (CG) 75.32 mL/min; POTASSIUM,K 3.5 mmol/L (3.5-5.1)
[2024-07-14 21:49] LABS: CALCIUM 8.7 mg/dL (8.5-10.1); CARBON DIOXIDE,CO2 15.6 mmol/L (21.0-32.0); EST CRCL DRUG DOSING (CG) 82.85 mL/min; POTASSIUM,K 3.2 mmol/L (3.5-5.1)
[2024-07-14] MEDS: Acetaminophen 325 MG/10.15 ML PO PRN (23:25)
[2024-07-15 00:56] LABS: BASE EXCESS VENOUS -8.7 (-2.0-3.0); PH,VENOUS 7.37 (7.31-7.41)
[2024-07-15 01:13] LABS: CALCIUM 8.4 mg/dL (8.5-10.1); CREATININE 1.1 mg/dL (0.8-1.3); EST CRCL DRUG DOSING (CG) 75.32 mL/min; POTASSIUM,K 3.4 mmol/L (3.5-5.1)
[2024-07-15 05:10] LABS: BASOPHILS ABSOLUTE AUTO 0.02 K/uL (0.00-0.20); BASOPHILS PERCENT AUTO 0.4 % (0.0-1.0); EOSINOPHILS ABSOLUTE AUTO 0.07 K/uL (0.00-0.45); EOSINOPHILS PERCENT AUTO 1.5 % (0.0-6.0); HEMATOCRIT 28.9 % (42.0-52.0); HEMOGLOBIN 9.2 g/dL (14.0-18.0); IMMATURE GRAN ABSOLUTE AUTO 0.05 K/uL (0.00-0.05); LYMPHOCYTES ABSOLUTE AUTO 1.15 K/uL (1.00-4.80); LYMPHOCYTES PERCENT AUTO 23.9 % (24.0-44.0); MEAN CORPUSCULAR HEMOGLOBIN 23.4 pg (28.0-32.0); MEAN CORPUSCULAR HGB CONC 31.8 g/dL (32.0-36.0); MEAN CORPUSCULAR VOLUME 73.5 fL (83.0-99.0); MEAN PLATELET VOLUME 9.6 fL (9.4-12.4); MONOCYTES PERCENT AUTO 12.4 % (0.0-8.0); NEUTROPHILS ABSOLUTE AUTO 2.93 K/uL (1.80-7.70); NEUTROPHILS PERCENT AUTO 60.8 % (41.0-71.0); PLATELET COUNT,PLT 108 K/uL (150-400); RED BLOOD CELL COUNT 3.93 M/uL (4.52-5.90); WHITE BLOOD CELL COUNT,WBC 4.82 K/uL (3.9-11.3)
[2024-07-15 05:34] LABS: CALCIUM 8.7 mg/dL (8.5-10.1); CARBON DIOXIDE,CO2 18.4 mmol/L (21.0-32.0); EST CRCL DRUG DOSING (CG) 82.85 mL/min; POTASSIUM,K 3.6 mmol/L (3.5-5.1)
[2024-07-15] MEDS: Magnesium Sulfate/Water Premix 2 GM in Premix Bag 1 BAG IV ONE (08:42)
[2024-07-15] MEDS: Folic Acid 1 MG/0.2 ML UD Syringe IV SCH (08:42)
[2024-07-15 10:18] LABS: CALCIUM 8.6 mg/dL (8.5-10.1); CARBON DIOXIDE,CO2 15.9 mmol/L (21.0-32.0); CREATININE 0.9 mg/dL (0.8-1.3); EST CRCL DRUG DOSING (CG) 92.06 mL/min; POTASSIUM,K 3.3 mmol/L (3.5-5.1)
[2024-07-15] MEDS: Potassium Chloride 10 MEQ in Premix Bag 1 BAG IV SCH (13:05)
[2024-07-15 14:03] LABS: CALCIUM 8.7 mg/dL (8.5-10.1); CARBON DIOXIDE,CO2 19.2 mmol/L (21.0-32.0); CREATININE 1.1 mg/dL (0.8-1.3); EST CRCL DRUG DOSING (CG) 75.32 mL/min; POTASSIUM,K 3.5 mmol/L (3.5-5.1)
[2024-07-15 17:54] LABS: CALCIUM 8.5 mg/dL (8.5-10.1); EST CRCL DRUG DOSING (CG) 82.85 mL/min; POTASSIUM,K 3.8 mmol/L (3.5-5.1)
[2024-07-15 21:51] LABS: CALCIUM 8.6 mg/dL (8.5-10.1); CARBON DIOXIDE,CO2 20.9 mmol/L (21.0-32.0); EST CRCL DRUG DOSING (CG) 82.85 mL/min; POTASSIUM,K 3.5 mmol/L (3.5-5.1)
[2024-07-16 01:26] LABS: CALCIUM 8.2 mg/dL (8.5-10.1); CARBON DIOXIDE,CO2 18.1 mmol/L (21.0-32.0); EST CRCL DRUG DOSING (CG) 82.85 mL/min; POTASSIUM,K 3.4 mmol/L (3.5-5.1)
[2024-07-16 05:56] LABS: BASOPHILS ABSOLUTE AUTO 0.03 K/uL (0.00-0.20); BASOPHILS PERCENT AUTO 0.7 % (0.0-1.0); EOSINOPHILS ABSOLUTE AUTO 0.14 K/uL (0.00-0.45); EOSINOPHILS PERCENT AUTO 3.2 % (0.0-6.0); HEMATOCRIT 26.7 % (42.0-52.0); HEMOGLOBIN 8.5 g/dL (14.0-18.0); IMMATURE GRAN ABSOLUTE AUTO 0.05 K/uL (0.00-0.05); IMMATURE GRAN PERCENT AUTO 1.1 % (0.0-0.4); LYMPHOCYTES ABSOLUTE AUTO 1.42 K/uL (1.00-4.80); LYMPHOCYTES PERCENT AUTO 32.1 % (24.0-44.0); MEAN CORPUSCULAR HEMOGLOBIN 23.5 pg (28.0-32.0); MEAN CORPUSCULAR HGB CONC 31.8 g/dL (32.0-36.0); MONOCYTES ABSOLUTE AUTO 0.54 K/uL (0.00-0.80); MONOCYTES PERCENT AUTO 12.2 % (0.0-8.0); NEUTROPHILS ABSOLUTE AUTO 2.25 K/uL (1.80-7.70); NEUTROPHILS PERCENT AUTO 50.7 % (41.0-71.0); PLATELET COUNT,PLT 117 K/uL (150-400); RED BLOOD CELL COUNT 3.61 M/uL (4.52-5.90); WHITE BLOOD CELL COUNT,WBC 4.43 K/uL (3.9-11.3)
[2024-07-16 06:08] LABS: CARBON DIOXIDE,CO2 20.3 mmol/L (21.0-32.0); CREATININE 0.8 mg/dL (0.8-1.3); EST CRCL DRUG DOSING (CG) 103.57 mL/min; POTASSIUM,K 3.1 mmol/L (3.5-5.1)
[2024-07-16] MEDS ORDERED: 50% Dextrose in Water 50 ML Syringe IVPUSH PRN (09:15)
[2024-07-16] MEDS ORDERED: Glucagon,Human Recombinant 1 MG Vial IM PRN (09:15)
[2024-07-16] MEDS: Potassium Chloride 20 MEQ Tab.ER PO ONE (09:30)
[2024-07-16] MEDS: Magnesium Sulfate/Water Premix 2 GM in Premix Bag 1 BAG IV ONE (09:46)
[2024-07-16] MEDS: Insulin Glargine,Hum.Rec.Anlog 100 UNIT/ML 3 ML Pen SUBCUT SCH ×2 (10:01→20:24)
[2024-07-16] MEDS: Insulin Aspart 100 Units/ML 3 ML Pen SUBCUT SCH (11:52)
[2024-07-16 14:33] LABS: CALCIUM 8.5 mg/dL (8.5-10.1); CARBON DIOXIDE,CO2 22.6 mmol/L (21.0-32.0); CREATININE 0.9 mg/dL (0.8-1.3); EST CRCL DRUG DOSING (CG) 91.88 mL/min; POTASSIUM,K 3.7 mmol/L (3.5-5.1)
[2024-07-16] MEDS: Enoxaparin 40 MG/0.4 ML Syringe SUBCUT SCH (15:30)
[2024-07-17 06:43] LABS: BASOPHILS ABSOLUTE AUTO 0.05 K/uL (0.00-0.20); BASOPHILS PERCENT AUTO 1.1 % (0.0-1.0); EOSINOPHILS ABSOLUTE AUTO 0.25 K/uL (0.00-0.45); EOSINOPHILS PERCENT AUTO 5.7 % (0.0-6.0); HEMATOCRIT 27.2 % (42.0-52.0); HEMOGLOBIN 8.4 g/dL (14.0-18.0); IMMATURE GRAN ABSOLUTE AUTO 0.07 K/uL (0.00-0.05); IMMATURE GRAN PERCENT AUTO 1.6 % (0.0-0.4); LYMPHOCYTES ABSOLUTE AUTO 1.77 K/uL (1.00-4.80); LYMPHOCYTES PERCENT AUTO 40.3 % (24.0-44.0); MEAN CORPUSCULAR HEMOGLOBIN 23.1 pg (28.0-32.0); MEAN CORPUSCULAR HGB CONC 30.9 g/dL (32.0-36.0); MEAN CORPUSCULAR VOLUME 74.7 fL (83.0-99.0); MEAN PLATELET VOLUME 9.3 fL (9.4-12.4); MONOCYTES ABSOLUTE AUTO 0.54 K/uL (0.00-0.80); MONOCYTES PERCENT AUTO 12.3 % (0.0-8.0); NEUTROPHILS ABSOLUTE AUTO 1.71 K/uL (1.80-7.70); PLATELET COUNT,PLT 128 K/uL (150-400); RED BLOOD CELL COUNT 3.64 M/uL (4.52-5.90); WHITE BLOOD CELL COUNT,WBC 4.39 K/uL (3.9-11.3)
[2024-07-17 07:11] LABS: A/G RATIO 0.6 (0.9-1.6); ALBUMIN 2.3 g/dL (3.4-5.0); BILIRUBIN TOTAL 0.2 mg/dL (0.2-1.0); CALCIUM 8.6 mg/dL (8.5-10.1); CARBON DIOXIDE,CO2 23.8 mmol/L (21.0-32.0); CREATININE 0.9 mg/dL (0.8-1.3); EST CRCL DRUG DOSING (CG) 91.88 mL/min; POTASSIUM,K 3.7 mmol/L (3.5-5.1); PROTEIN TOTAL,TP 6.4 g/dL (6.4-8.2)
[2024-07-17] MEDS ORDERED: Insulin Glargine,Hum.Rec.Anlog 100 UNIT/ML 3 ML Pen SUBCUT SCH (07:30)
== END 2024-07-17 12:35 | disposition home or self-care (01) | DRG 637 ==
LOC: MW.ED 21:47 → MW.ICU 23:52 → OBSVTOIN 23:52 → MW.MS 07-16 17:44
PROVIDERS: ADMIT Internal Medicine; ATTEND Internal Medicine
DX: E10.10 Type 1 diabetes mellitus with ketoacidosis without coma (principal); J18.9 Pneumonia, unspecified organism; K85.90 Acute pancreatitis without necrosis or infection, unspecified; N17.9 Acute kidney failure, unspecified; F10.139 Alcohol abuse with withdrawal, unspecified; I10 Essential (primary) hypertension; K29.70 Gastritis, unspecified, without bleeding; D72.829 Elevated white blood cell count, unspecified; Z88.0 Allergy status to penicillin; Z88.1 Allergy status to other antibiotic agents; Z79.4 Long term (current) use of insulin
CPT/HCPCS: 0241U; 36415; 71045; 71045-26; 74176; 74176-26; 80048; 80053; 80305-QW; 80307; 81001; 82009; 82803; 82947; 83036; 83605; 83690; 83735; 84100; 84484; 85025; 93005; 93010; 94667; 96361; 96374; 96375; 99285-25; 99291; A9270-GY; J0456; J0696; J1650; J1790; J1815; J1815-GY; J2405; J2470; J3010; J3411; J3475; J3480; J3490; J7030; J7042; J7050; J7120; J7131

== ENCOUNTER 2024-08-30 10:20 | Inpatient (IN) | payer MEDICAID, OTHER ==
[2024-08-30] MEDS: Lactated Ringers 2,000 ML IV ONE (11:02)
[2024-08-30 11:16] LABS: BASE EXCESS VENOUS -14.3 (-2.0-3.0); HEMATOCRIT 36.6 % (42.0-52.0); HEMOGLOBIN 11.4 g/dL (14.0-18.0); MEAN CORPUSCULAR HEMOGLOBIN 23.9 pg (28.0-32.0); MEAN CORPUSCULAR HGB CONC 31.1 g/dL (32.0-36.0); MEAN CORPUSCULAR VOLUME 76.9 fL (83.0-99.0); MEAN PLATELET VOLUME 9.5 fL (9.4-12.4); PH,VENOUS 7.24 (7.31-7.41); PLATELET COUNT,PLT 243 K/uL (150-400); RED BLOOD CELL COUNT 4.76 M/uL (4.52-5.90); WHITE BLOOD CELL COUNT,WBC 12.44 K/uL (3.9-11.3)
[2024-08-30 12:04] LABS: ALBUMIN 4.4 g/dL (3.4-5.0); BILIRUBIN TOTAL 0.5 mg/dL (0.2-1.0); CALCIUM 9.1 mg/dL (8.5-10.1); CARBON DIOXIDE,CO2 13.3 mmol/L (21.0-32.0); CREATININE 1.4 mg/dL (0.8-1.3); EST CRCL DRUG DOSING (CG) 55.33 mL/min; MAGNESIUM 2.5 mg/dL (1.8-2.4); POTASSIUM,K 4.1 mmol/L (3.5-5.1); PROTEIN TOTAL,TP 8.6 g/dL (6.4-8.2)
[2024-08-30 12:05] LABS: A/G RATIO 1.1 (0.9-1.6); PHOSPHORUS 9.5 mg/dL (2.6-4.7)
[2024-08-30 12:11] LABS: LYMPHOCYTES ABSOLUTE MAN 0.75 K/uL (1.00-4.80); LYMPHOCYTES PERCENT MAN 6 % (24-44); MONOCYTES ABSOLUTE MAN 0.87 K/uL (0.00-0.80); MONOCYTES PERCENT MAN 7 % (0-8); SEG NEUTROPHILS ABSOLUTE MAN 10.82 K/uL (1.80-7.70); SEG NEUTROPHILS PERCENT MAN 87 % (41-71)
[2024-08-30] MEDS ORDERED: Insulin Regular in 0.9 % NACL 100 ML IV SCH (12:15)
[2024-08-30 12:50] LABS: APPEARANCE,URINE CLEAR; BILIRUBIN,URINE NEGATIVE (NEGATIVE); COLOR,URINE YELLOW; GLUCOSE,URINE 500 mg/dL (NEGATIVE); KETONES,URINE >=80 mg/dL (NEGATIVE); LEUKOCYTE ESTERASE,URINE NEGATIVE (NEGATIVE); NITRITE,URINE NEGATIVE (NEGATIVE); OCCULT BLOOD,URINE NEGATIVE (NEGATIVE); PROTEIN,URINE 30 mg/dL (NEGATIVE); UROBILINOGEN,URINE 0.2 EU/dL (<2.0)
[2024-08-30 13:03] LABS: RBC,URINE NONE SEEN (0-2/HPF)
[2024-08-30 13:04] LABS: BACTERIA,URINE FEW (NEGATIVE); EPITHELIAL CELLS,URINE RARE (NONE-FEW); MUCUS,URINE LIGHT (NONE-MOD); WBC,URINE 0-1 (0-5/HPF)
[2024-08-30 13:09] LABS: POTASSIUM,K 4.3 mmol/L (3.5-5.1)
[2024-08-30 14:16] LABS: POTASSIUM,K 4.2 mmol/L (3.5-5.1)
[2024-08-30] MEDS ORDERED: D5 1/2 NS w/ 20 mEq/L KCl 1,000 ML IV SCH (14:30)
[2024-08-30] MEDS ORDERED: Dextrose 10% in Water 500 ML IV SCH (14:45)
[2024-08-30 14:48] LABS: CALCIUM 8.4 mg/dL (8.5-10.1); CARBON DIOXIDE,CO2 16.9 mmol/L (21.0-32.0); CREATININE 1.2 mg/dL (0.8-1.3); EST CRCL DRUG DOSING (CG) 64.55 mL/min; POTASSIUM,K 4.2 mmol/L (3.5-5.1)
[2024-08-30] MEDS ORDERED: Acetaminophen 325 MG Tab PO PRN (15:36)
[2024-08-30] MEDS ORDERED: Ondansetron 4 MG/2 ML SDV IVPUSH PRN (15:36)
[2024-08-30] MEDS ORDERED: LORazepam 2 MG/ML SDV IVPUSH PRN (15:45)
[2024-08-30 15:58] LABS: CALCIUM 8.4 mg/dL (8.5-10.1); CREATININE 1.2 mg/dL (0.8-1.3); EST CRCL DRUG DOSING (CG) 64.55 mL/min; POTASSIUM,K 4.2 mmol/L (3.5-5.1)
[2024-08-30] MEDS: Insulin Regular in 0.9 % NACL 100 ML IV SCH (16:58)
[2024-08-30] MEDS: Folic Acid 1 MG/0.2 ML UD Syringe IV SCH (17:16)
[2024-08-30] MEDS: Thiamine 200 MG/2 ML MDV IVPUSH SCH (17:17)
[2024-08-30 20:05] LABS: CALCIUM 7.9 mg/dL (8.5-10.1); CARBON DIOXIDE,CO2 26.6 mmol/L (21.0-32.0); CREATININE 1.1 mg/dL (0.8-1.3); EST CRCL DRUG DOSING (CG) 69.81 mL/min; POTASSIUM,K 4.1 mmol/L (3.5-5.1)
[2024-08-30] MEDS: Pantoprazole 40 MG in Sodium Chloride 0.9% 10 ML IVPUSH SCH (20:24)
[2024-08-30] MEDS: Dextrose 5%-0.45% NaCl 1,000 ML IV SCH (20:26)
[2024-08-31 00:28] LABS: CALCIUM 8.2 mg/dL (8.5-10.1); CARBON DIOXIDE,CO2 30.7 mmol/L (21.0-32.0); EST CRCL DRUG DOSING (CG) 76.79 mL/min; POTASSIUM,K 3.4 mmol/L (3.5-5.1)
[2024-08-31] MEDS: Insulin Glargine,Hum.Rec.Anlog 100 UNIT/ML 3 ML Pen SUBCUT SCH ×2 (01:10→09:22)
[2024-08-31] MEDS: Potassium Chloride 20 MEQ Tab.ER PO ONE (01:14)
[2024-08-31 04:02] LABS: CARBON DIOXIDE,CO2 30.8 mmol/L (21.0-32.0); CREATININE 0.9 mg/dL (0.8-1.3); EST CRCL DRUG DOSING (CG) 85.32 mL/min; POTASSIUM,K 3.7 mmol/L (3.5-5.1)
[2024-08-31] MEDS ORDERED: 50% Dextrose in Water 50 ML Syringe IVPUSH PRN (06:19)
[2024-08-31] MEDS ORDERED: Glucagon,Human Recombinant 1 MG Vial IM PRN (06:19)
[2024-08-31] MEDS: Insulin Aspart 100 Units/ML 3 ML Pen SUBCUT SCH (07:58)
[2024-08-31 08:17] LABS: BASOPHILS ABSOLUTE AUTO 0.03 K/uL (0.00-0.20); BASOPHILS PERCENT AUTO 0.4 % (0.0-1.0); EOSINOPHILS ABSOLUTE AUTO 0.07 K/uL (0.00-0.45); HEMOGLOBIN 10.1 g/dL (14.0-18.0); LYMPHOCYTES ABSOLUTE AUTO 1.72 K/uL (1.00-4.80); LYMPHOCYTES PERCENT AUTO 23.8 % (24.0-44.0); MEAN CORPUSCULAR HGB CONC 31.6 g/dL (32.0-36.0); MEAN CORPUSCULAR VOLUME 76.2 fL (83.0-99.0); MEAN PLATELET VOLUME 9.3 fL (9.4-12.4); MONOCYTES PERCENT AUTO 5.5 % (0.0-8.0); NEUTROPHILS ABSOLUTE AUTO 5.01 K/uL (1.80-7.70); NEUTROPHILS PERCENT AUTO 69.3 % (41.0-71.0); PLATELET COUNT,PLT 175 K/uL (150-400); WHITE BLOOD CELL COUNT,WBC 7.23 K/uL (3.9-11.3)
[2024-08-31 08:42] LABS: CALCIUM 8.6 mg/dL (8.5-10.1); CREATININE 0.8 mg/dL (0.8-1.3); EST CRCL DRUG DOSING (CG) 95.99 mL/min
[2024-08-31 09:47] LABS: MAGNESIUM 1.9 mg/dL (1.8-2.4); PHOSPHORUS 2.3 mg/dL (2.6-4.7)
[2024-08-31] MEDS: Phosphorus #1 250 MG Tab PO SCH (11:51)
[2024-08-31 12:37] LABS: CARBON DIOXIDE,CO2 27.4 mmol/L (21.0-32.0); CREATININE 0.8 mg/dL (0.8-1.3); EST CRCL DRUG DOSING (CG) 95.99 mL/min; POTASSIUM,K 3.7 mmol/L (3.5-5.1)
[2024-08-31 16:25] LABS: CALCIUM 9.2 mg/dL (8.5-10.1); CARBON DIOXIDE,CO2 30.2 mmol/L (21.0-32.0); CREATININE 0.8 mg/dL (0.8-1.3); EST CRCL DRUG DOSING (CG) 95.99 mL/min; POTASSIUM,K 3.3 mmol/L (3.5-5.1)
[2024-09-01] MEDS ORDERED: Phosphorus #1 250 MG Tab PO SCH
== END 2024-08-31 19:17 | disposition home or self-care (01) | DRG 639 ==
LOC: MW.ED 10:20 → MW.ICU 15:12
PROVIDERS: ADMIT Internal Medicine; ATTEND Internal Medicine
DX: E10.10 Type 1 diabetes mellitus with ketoacidosis without coma (principal); F10.10 Alcohol abuse, uncomplicated; I10 Essential (primary) hypertension; Z96.651 Presence of right artificial knee joint; E78.00 Pure hypercholesterolemia, unspecified; Z88.1 Allergy status to other antibiotic agents; Z79.4 Long term (current) use of insulin; Z88.8 Allergy status to other drugs, medicaments and biological substances
CPT/HCPCS: 36415; 71045; 71045-26; 80048; 80053; 80307; 81001; 82009; 82803; 82947; 83735; 84100; 84132; 85007; 85025; 85027; 93005; A9270-GY; J1815; J1815-GY; J2470; J3360; J3411; J3480; J3490; J7120; J7799

== ENCOUNTER 2024-11-11 09:45 | Inpatient (IN) | payer MEDICAID ==
[2024-11-11] MEDS ORDERED: Glucagon,Human Recombinant 1 MG Vial IM PRN ×3 (09:58→12:54)
[2024-11-11] MEDS ORDERED: 50% Dextrose in Water 50 ML Syringe IVPUSH PRN ×3 (09:58→12:54)
[2024-11-11 10:13] LABS: BASOPHILS ABSOLUTE AUTO 0.08 K/uL (0.00-0.20); BASOPHILS PERCENT AUTO 0.4 % (0.0-1.0); EOSINOPHILS ABSOLUTE AUTO 0.02 K/uL (0.00-0.45); EOSINOPHILS PERCENT AUTO 0.1 % (0.0-6.0); HEMATOCRIT 44.8 % (42.0-52.0); HEMOGLOBIN 13.8 g/dL (14.0-18.0); IMMATURE GRAN ABSOLUTE AUTO 0.23 K/uL (0.00-0.05); IMMATURE GRAN PERCENT AUTO 1.2 % (0.0-0.4); LYMPHOCYTES ABSOLUTE AUTO 1.11 K/uL (1.00-4.80); LYMPHOCYTES PERCENT AUTO 5.7 % (24.0-44.0); MEAN CORPUSCULAR HEMOGLOBIN 25.2 pg (28.0-32.0); MEAN CORPUSCULAR HGB CONC 30.8 g/dL (32.0-36.0); MEAN CORPUSCULAR VOLUME 81.8 fL (83.0-99.0); MEAN PLATELET VOLUME 10.8 fL (9.4-12.4); MONOCYTES ABSOLUTE AUTO 1.23 K/uL (0.00-0.80); MONOCYTES PERCENT AUTO 6.3 % (0.0-8.0); NEUTROPHILS ABSOLUTE AUTO 16.73 K/uL (1.80-7.70); NEUTROPHILS PERCENT AUTO 86.3 % (41.0-71.0); PLATELET COUNT,PLT 153 K/uL (150-400); RED BLOOD CELL COUNT 5.48 M/uL (4.52-5.90)
[2024-11-11] MEDS: Insulin Regular, Human 100 Units/ML 10 ML Vial IVPUSH ONE (10:14)
[2024-11-11] MEDS: Sodium Chloride 0.9% 1,000 ML IV ONE ×2 (10:14→10:15)
[2024-11-11] MEDS: Ondansetron 4 MG/2 ML SDV IVPUSH ONE (10:14)
[2024-11-11 10:15] LABS: PH,VENOUS < 7.00 (7.31-7.41)
[2024-11-11 10:16] LABS: PCO2 VENOUS 21 mmHG (41-51); PO2 VENOUS 49 mmHG (35-45)
[2024-11-11 10:28] LABS: INR 1.02 (0.86-1.11)
[2024-11-11] MEDS: Multivitamin Tab PO ONE (10:49)
[2024-11-11] MEDS: Folic Acid 1 MG Tab PO ONE (10:49)
[2024-11-11] MEDS: Thiamine 100 MG Tab PO ONE (10:50)
[2024-11-11 10:59] LABS: HEMOGLOBIN A1C 13.3 %
[2024-11-11 11:04] LABS: A/G RATIO 0.8 (0.9-1.6); ALBUMIN 4.2 g/dL (3.4-5.0); BILIRUBIN TOTAL 0.7 mg/dL (0.2-1.0); CALCIUM 8.8 mg/dL (8.5-10.1); CARBON DIOXIDE,CO2 5.4 mmol/L (21.0-32.0); CREATININE 2.4 mg/dL (0.8-1.3); EST CRCL DRUG DOSING (CG) 31.67 mL/min; MAGNESIUM 2.8 mg/dL (1.8-2.4); POTASSIUM,K 4.9 mmol/L (3.5-5.1); PROTEIN TOTAL,TP 9.2 g/dL (6.4-8.2)
[2024-11-11] MEDS ORDERED: Sodium Chloride 0.9% 1,000 ML IV ONE (11:26)
[2024-11-11] MEDS: Insulin Regular in 0.9 % NACL 100 ML IV SCH ×2 (11:29→14:00)
[2024-11-11] MEDS: Sodium Chloride 0.9% 1,000 ML IV SCH (11:34)
[2024-11-11] MEDS ORDERED: Sodium Chloride 0.9% 1,000 ML IV SCH (12:00)
[2024-11-11] MEDS: Pantoprazole 40 MG in Sodium Chloride 0.9% 10 ML IVPUSH ONE (12:40)
[2024-11-11] MEDS ORDERED: Ondansetron 4 MG/2 ML SDV IVPUSH PRN (12:55)
[2024-11-11] MEDS ORDERED: Sodium Chloride 0.9% 10 ML Syringe FLUSH PRN (12:55)
[2024-11-11] MEDS ORDERED: Sodium Chloride 0.9% 2.5 ML Syringe FLUSH PRN (12:55)
[2024-11-11] MEDS ORDERED: Insulin Regular in 0.9 % NACL 100 ML IV SCH (13:00)
[2024-11-11] MEDS ORDERED: PHENobarbitaL sodium 260 MG in Sodium Chloride 0.9% 100 ML IV PRN (13:03)
[2024-11-11] MEDS ORDERED: PHENobarbital Sodium 130 MG/ML SDV IVPUSH PRN (13:03)
[2024-11-11] MEDS ORDERED: Naloxone 0.4 MG/ML SDV IVPUSH PRN (13:06)
[2024-11-11] MEDS ORDERED: Morphine 2 MG/ML SYRINGE IVPUSH PRN (13:06)
[2024-11-11 13:49] LABS: COLOR,URINE YELLOW; GLUCOSE,URINE 500 mg/dL (NEGATIVE); KETONES,URINE >=80 mg/dL (NEGATIVE); LEUKOCYTE ESTERASE,URINE NEGATIVE (NEGATIVE); NITRITE,URINE NEGATIVE (NEGATIVE); OCCULT BLOOD,URINE LARGE (NEGATIVE); PH,URINE 5.5 (5.0-8.0); PROTEIN,URINE 100 mg/dL (NEGATIVE); UROBILINOGEN,URINE 0.2 EU/dL (<2.0)
[2024-11-11 13:51] LABS: APPEARANCE,URINE HAZY; BILIRUBIN,URINE MODERATE (NEGATIVE)
[2024-11-11 14:13] LABS: BACTERIA,URINE RARE (NEGATIVE); EPITHELIAL CELLS,URINE OCCASIONAL (NONE-FEW); MUCUS,URINE LIGHT (NONE-MOD); WBC,URINE 0-2 (0-5/HPF)
[2024-11-11 14:49] LABS: CALCIUM 7.6 mg/dL (8.5-10.1); CARBON DIOXIDE,CO2 5.6 mmol/L (21.0-32.0); CREATININE 1.5 mg/dL (0.8-1.3); EST CRCL DRUG DOSING (CG) 50.67 mL/min; POTASSIUM,K 5.1 mmol/L (3.5-5.1)
[2024-11-11] MEDS: Dextrose 5%-0.9% NaCl 1,000 ML IV SCH (16:15)
[2024-11-11 18:44] LABS: CALCIUM 7.4 mg/dL (8.5-10.1); CARBON DIOXIDE,CO2 8.8 mmol/L (21.0-32.0); CREATININE 1.4 mg/dL (0.8-1.3); EST CRCL DRUG DOSING (CG) 55.71 mL/min; POTASSIUM,K 4.3 mmol/L (3.5-5.1)
[2024-11-11] MEDS: Pantoprazole 40 MG in Sodium Chloride 0.9% 10 ML IVPUSH SCH (22:09)
[2024-11-11 22:31] LABS: CALCIUM 7.7 mg/dL (8.5-10.1); CARBON DIOXIDE,CO2 15.1 mmol/L (21.0-32.0); CREATININE 1.2 mg/dL (0.8-1.3); MAGNESIUM 1.9 mg/dL (1.8-2.4); PHOSPHORUS 1.4 mg/dL (2.6-4.7); POTASSIUM,K 3.7 mmol/L (3.5-5.1)
[2024-11-12 02:33] LABS: CALCIUM 8.2 mg/dL (8.5-10.1); CARBON DIOXIDE,CO2 18.5 mmol/L (21.0-32.0); POTASSIUM,K 3.3 mmol/L (3.5-5.1)
[2024-11-12 06:44] LABS: BASOPHILS ABSOLUTE AUTO 0.01 K/uL (0.00-0.20); BASOPHILS PERCENT AUTO 0.1 % (0.0-1.0); EOSINOPHILS ABSOLUTE AUTO 0.08 K/uL (0.00-0.45); HEMATOCRIT 30.1 % (42.0-52.0); HEMOGLOBIN 10.1 g/dL (14.0-18.0); IMMATURE GRAN ABSOLUTE AUTO 0.04 K/uL (0.00-0.05); IMMATURE GRAN PERCENT AUTO 0.5 % (0.0-0.4); LYMPHOCYTES ABSOLUTE AUTO 1.48 K/uL (1.00-4.80); LYMPHOCYTES PERCENT AUTO 18.8 % (24.0-44.0); MEAN CORPUSCULAR HEMOGLOBIN 25.5 pg (28.0-32.0); MEAN CORPUSCULAR HGB CONC 33.6 g/dL (32.0-36.0); MEAN PLATELET VOLUME 9.8 fL (9.4-12.4); MONOCYTES ABSOLUTE AUTO 0.61 K/uL (0.00-0.80); MONOCYTES PERCENT AUTO 7.7 % (0.0-8.0); NEUTROPHILS ABSOLUTE AUTO 5.67 K/uL (1.80-7.70); NEUTROPHILS PERCENT AUTO 71.9 % (41.0-71.0); PLATELET COUNT,PLT 83 K/uL (150-400); RED BLOOD CELL COUNT 3.96 M/uL (4.52-5.90); WHITE BLOOD CELL COUNT,WBC 7.89 K/uL (3.9-11.3)
[2024-11-12 06:47] LABS: CALCIUM 8.2 mg/dL (8.5-10.1); CREATININE 0.9 mg/dL (0.8-1.3); EST CRCL DRUG DOSING (CG) 92.59 mL/min; MAGNESIUM 1.7 mg/dL (1.8-2.4); PHOSPHORUS 1.5 mg/dL (2.6-4.7)
[2024-11-12] MEDS: Potassium Chloride 20 MEQ Tab.ER PO SCH (08:36)
[2024-11-12] MEDS: Thiamine 200 MG/2 ML MDV IVPUSH SCH (08:36)
[2024-11-12] MEDS: Folic Acid 1 MG/0.2 ML UD Syringe IV SCH (08:37)
[2024-11-12] MEDS: MAGNESIUM SULF IV ONE (08:57)
[2024-11-12] MEDS: POTASSIUM PHOSPHATES IV ONE (08:57)
[2024-11-12] MEDS: [UNRECOGNIZED DRUG - OTHER] IV ONE (08:57)
[2024-11-12] MEDS ORDERED: Thiamine 100 MG in Sodium Chloride 0.9% 100 ML IV SCH (09:00)
[2024-11-12 10:25] LABS: CALCIUM 8.3 mg/dL (8.5-10.1); CARBON DIOXIDE,CO2 20.8 mmol/L (21.0-32.0); CREATININE 0.8 mg/dL (0.8-1.3); EST CRCL DRUG DOSING (CG) 104.17 mL/min; POTASSIUM,K 3.4 mmol/L (3.5-5.1)
[2024-11-12 10:39] LABS: A/G RATIO 0.8 (0.9-1.6); ALBUMIN 2.8 g/dL (3.4-5.0); BILIRUBIN DIRECT 0.2 mg/dL (0.0-0.5); BILIRUBIN INDIRECT 0.4; BILIRUBIN TOTAL 0.6 mg/dL (0.2-1.0); PROTEIN TOTAL,TP 6.5 g/dL (6.4-8.2)
[2024-11-12] MEDS ORDERED: PHENobarbital 32.4 MG Tab PO PRN ×3 (10:43)
[2024-11-12] MEDS ORDERED: Glucagon,Human Recombinant 1 MG Vial IM PRN (10:49)
[2024-11-12] MEDS ORDERED: 50% Dextrose in Water 50 ML Syringe IVPUSH PRN (10:49)
[2024-11-12] MEDS ORDERED: Acetaminophen 325 MG Tab PO PRN (10:51)
[2024-11-12] MEDS: Insulin Glargine,Hum.Rec.Anlog 100 UNIT/ML 3 ML Pen SUBCUT ONE (11:04)
[2024-11-12 16:27] LABS: CALCIUM 8.7 mg/dL (8.5-10.1); CARBON DIOXIDE,CO2 18.8 mmol/L (21.0-32.0); CREATININE 0.8 mg/dL (0.8-1.3); EST CRCL DRUG DOSING (CG) 104.17 mL/min; POTASSIUM,K 4.5 mmol/L (3.5-5.1)
[2024-11-12] MEDS: Insulin Aspart 100 Units/ML 3 ML Pen SUBCUT SCH (16:40)
[2024-11-12] MEDS: Insulin Glargine,Hum.Rec.Anlog 100 UNIT/ML 3 ML Pen SUBCUT SCH (20:20)
[2024-11-13 06:01] LABS: BASOPHILS ABSOLUTE AUTO 0.02 K/uL (0.00-0.20); BASOPHILS PERCENT AUTO 0.5 % (0.0-1.0); EOSINOPHILS ABSOLUTE AUTO 0.16 K/uL (0.00-0.45); EOSINOPHILS PERCENT AUTO 3.7 % (0.0-6.0); HEMATOCRIT 34.8 % (42.0-52.0); HEMOGLOBIN 11.7 g/dL (14.0-18.0); IMMATURE GRAN ABSOLUTE AUTO 0.02 K/uL (0.00-0.05); IMMATURE GRAN PERCENT AUTO 0.5 % (0.0-0.4); LYMPHOCYTES ABSOLUTE AUTO 1.51 K/uL (1.00-4.80); LYMPHOCYTES PERCENT AUTO 34.7 % (24.0-44.0); MEAN CORPUSCULAR HEMOGLOBIN 25.7 pg (28.0-32.0); MEAN CORPUSCULAR HGB CONC 33.6 g/dL (32.0-36.0); MEAN CORPUSCULAR VOLUME 76.3 fL (83.0-99.0); MEAN PLATELET VOLUME 10.4 fL (9.4-12.4); MONOCYTES ABSOLUTE AUTO 0.48 K/uL (0.00-0.80); NEUTROPHILS ABSOLUTE AUTO 2.16 K/uL (1.80-7.70); NEUTROPHILS PERCENT AUTO 49.6 % (41.0-71.0); PLATELET COUNT,PLT 74 K/uL (150-400); RED BLOOD CELL COUNT 4.56 M/uL (4.52-5.90); WHITE BLOOD CELL COUNT,WBC 4.35 K/uL (3.9-11.3)
[2024-11-13 06:31] LABS: A/G RATIO 0.8 (0.9-1.6); ALBUMIN 3.1 g/dL (3.4-5.0); BILIRUBIN TOTAL 0.8 mg/dL (0.2-1.0); CALCIUM 8.5 mg/dL (8.5-10.1); CARBON DIOXIDE,CO2 20.6 mmol/L (21.0-32.0); CREATININE 0.7 mg/dL (0.8-1.3); EST CRCL DRUG DOSING (CG) 114.29 mL/min; MAGNESIUM 2.2 mg/dL (1.8-2.4); PHOSPHORUS 2.1 mg/dL (2.6-4.7); POTASSIUM,K 3.8 mmol/L (3.5-5.1)
[2024-11-13] MEDS: Thiamine 100 MG Tab PO SCH (09:22)
[2024-11-13] MEDS: Folic Acid 1 MG Tab PO SCH (09:22)
[2024-11-13] MEDS: Insulin Glargine,Hum.Rec.Anlog 100 UNIT/ML 3 ML Pen SUBCUT ONE (13:09)
== END 2024-11-13 14:12 | disposition home or self-care (01) | DRG 638 ==
LOC: MW.ED 09:45 → MW.ICU 12:27
PROVIDERS: ADMIT Family Medicine; ATTEND Family Medicine
DX: E10.10 Type 1 diabetes mellitus with ketoacidosis without coma (principal); N17.9 Acute kidney failure, unspecified; R65.10 Systemic inflammatory response syndrome (SIRS) of non-infectious origin without acute organ dysfunction; E78.00 Pure hypercholesterolemia, unspecified; I10 Essential (primary) hypertension; Z96.659 Presence of unspecified artificial knee joint; E86.0 Dehydration; F17.210 Nicotine dependence, cigarettes, uncomplicated; F10.10 Alcohol abuse, uncomplicated; Z91.199 Patient's noncompliance with other medical treatment and regimen due to unspecified reason; Z88.0 Allergy status to penicillin; Z79.4 Long term (current) use of insulin; Z79.899 Other long term (current) drug therapy
CPT/HCPCS: 36415; 71045; 71045-26; 80048; 80053; 80076; 80307; 81001; 82009; 82803; 82947; 83036; 83605; 83690; 83735; 83880; 84100; 85025; 85610; 87428-QW; 93005; 93010; 96361; 96374; 99223; 99232; 99239; 99285-25; 99291; A9270-GY; J1815; J1815-GY; J2405; J2470; J2560; J3411; J3490; J7030; J7040; J7042